=== PATIENT | female | born 1975 | race Caucasian/White ===

== ENCOUNTER 2017-03-04 15:48 | Emergency (ER) | payer MEDICARE, OTHER ==
--- NOTE | 2017-03-04 16:37 | RAD ---
RADIOGRAPH CHEST 1 VIEW: 03/04/17 HISTORY: 41-year-old female with dyspnea and cough. FINDINGS: There are no air space densities, pulmonary edema, pneumothorax, or cardiomegaly. The lateral costo phrenic angles are sharp. IMPRESSION: No acute cardiopulmonary findings. damaso [] POS: [facility]
[2017-03-04 16:50] LABS: #Basophils 0.1 thou/uL (0.0-0.2); #Eosinphils 0.2 thou/uL (0.0-0.7); #Lymphocytes 1.6 thou/uL (1.20-3.40); #Monocytes 0.6 thou/uL (0.11-0.59); %Basophils 0.6 % (0.0-1.0); %Eosinophils 2.2 % (0.0-10.0); %Lymphocytes 19.4 % (21.0-51.0); Mean Platelet Volume 9.1 fL (7.4-10.4); White Blood Cell (WBC) Count 8.4 thou/uL (4.8-10.8)
[2017-03-04 17:13] LABS: ALT (SGPT) 9 U/L (8-55); AST (SGOT) 7 U/L (5-34); Alkaline Phosphatase 106 U/L (40-150); Anion Gap 13 mmol/L (10-20); BUN (Urea Nitrogen) 7 mg/dL (7.0-18.7); Bilirubin, Total 0.4 mg/dL (0.2-1.2); CK (CPK) 105 U/L (29-168); Calc. Creatinine Clearance 0 mL/min (70-130); Calcium 9.4 mg/dL (7.8-10.44); Carbon Dioxide 27 mmol/L (22-29); Chloride 102 mmol/L (98-107); Estimated GFR-MDRD 76; Globulin 3.4 g/dL (2.4-3.5)
[2017-03-04 17:17] LABS: Troponin I 0.015 ng/mL (< 0.028)
[2017-03-04] MEDS ORDERED: Lorazepam 2 MG/ML VIAL ONE ×2 (18:41→20:03)
--- NOTE | 2017-03-04 22:56 | CT ---
CT ANGIOGRAM THORAX WITH IV CONTRAST AND 3D RECONSTRUCTIONS: 03/04/17 HISTORY: Shortness of breath. Chest pain. FINDINGS: No filling defects are seen within the pulmonary arteries to suggest a pulmonary embolus. The thorac ic aorta is normal in caliber and there is no evidence of an aortic dissection. There are reticulonodular densities seen within the upper lobes bilaterally, greater on the right crowley ggesting infectious or inflammatory process. There is a pleural based nodular density present at the posterior aspect left lower lobe measuring 8 mm. No pleural effusion is identified. There is mild prominence of soft tissue density in the hilar regions bilaterally which may be related to reactive lymphadenopathy. Calcified granuloma is seen at the right lung base. Post cholecystectomy changes are partially imaged in the upper abdomen. IMPRESSION: 1. Reticulonodular densities in the upper lobes bilaterally, greater on the right which may be related to infectious or inflammatory process. 2. 8 mm pleural based nodular density left lower lobe. Followup evaluation in six months is rec ommended. 3. No CT evidence of a pulmonary embolus. 4. Probable reactive lymphadenopathy in each hilar region. POS: [facility]
== END 2017-03-04 21:42 | disposition home or self-care (01) ==
LOC: ERS 15:48
DX: E11.65 Type 2 diabetes mellitus with hyperglycemia (principal); F41.9 Anxiety disorder, unspecified; I10 Essential (primary) hypertension; F32.9 Major depressive disorder, single episode, unspecified; F17.210 Nicotine dependence, cigarettes, uncomplicated; Z79.899 Other long term (current) drug therapy
CPT/HCPCS: 36415; 36416; 71010; 71275; 80053; 82550; 82553; 84484; 85025; 93005; 94640; 96361; 96374; 96376; J2060; J7620

== ENCOUNTER 2017-04-08 03:56 | Inpatient (IN) | payer MEDICARE, OTHER ==
[2017-04-08 04:36] LABS: #Eosinphils 0.2 thou/uL (0.0-0.7); #Monocytes 0.6 thou/uL (0.11-0.59); #Neutrophils 11.7 thou/uL (1.40-6.50); %Basophils 0.1 % (0.0-1.0); %Eosinophils 1.2 % (0.0-10.0); %Lymphocytes 19.4 % (21.0-51.0); Hematocrit 44.9 % (36.0-47.0); Mean Platelet Volume 9.3 fL (7.4-10.4); Red Blood Cell (RBC) Count 5.05 mill/uL (4.20-5.40); White Blood Cell (WBC) Count 15.5 thou/uL (4.8-10.8)
[2017-04-08 04:59] LABS: ALT (SGPT) 8 U/L (8-55); AST (SGOT) 23 U/L (5-34); Alkaline Phosphatase 85 U/L (40-150); Anion Gap 17 mmol/L (10-20); BUN (Urea Nitrogen) 11 mg/dL (7.0-18.7); Bilirubin, Total 0.5 mg/dL (0.2-1.2); Calc. Creatinine Clearance 0 mL/min (70-130); Calcium 8.8 mg/dL (7.8-10.44); Carbon Dioxide 22 mmol/L (22-29); Chloride 103 mmol/L (98-107); Estimated GFR-MDRD 58; Globulin 3.7 g/dL (2.4-3.5); Protein, Total 7.5 g/dL (6.0-8.3)
[2017-04-08 05:01] LABS: Troponin I Less than 0.010 ng/mL (< 0.028)
[2017-04-08] MEDS ORDERED: Atropine Sulfate 1 mg/10 ml Syringe ONE (05:07)
[2017-04-08] MEDS ORDERED: Fentanyl 100 MCG/2 ML VIAL ONE ×2 (05:28→06:42)
[2017-04-08 05:52] LABS: Bilirubin Negative (Negative); Blood, Urine Negative (Negative); Glucose, Urine (Dipstick) Negative (Negative); Ketone, Urine Trace mg/dL (Negative); Nitrite Negative (Negative); Protein, Urine (Dipstick) 30 mg/dL (Neg-Trace); Urobilinogen 0.2 mg/dL (0.2-1.0)
[2017-04-08 05:55] LABS: Bacteria/HPF None Seen HPF (None Seen); RBC/HPF 0-3 HPF (0-3)
[2017-04-08 05:56] LABS: Lactic Acid - Sepsis 3.6 mmol/L (0.5-2.2)
[2017-04-08] MEDS ORDERED: Norepinephrine 8 MG/0.9% NS 250 ML ONE (06:01)
[2017-04-08 06:26] LABS: Amphetamine Not Detected (NotDetected); Methadone Not Detected (NotDetected); Methamphetamine Not Detected (NotDetected)
[2017-04-08 06:46] LABS: Hyaline Casts/LPF 0-3 HYALINE CAST LPF (0-3 Hyaline); Renal Epithelial 0-3 HPF (0-3)
--- NOTE | 2017-04-08 07:55 | RAD ---
PORTABLE CHEST 1 VIEW: Date: 04/08/17 Time: 0618 hours HISTORY: Central line placement. COMPARISON: Exam from 0504 hours same date. FINDINGS/IMPRESSION: There has been interval placement of right subclavian central line with tip in the projection of the SVC. No pneumothorax is seen. POS: [facility]
--- NOTE | 2017-04-08 07:57 | RAD ---
PORTABLE CHEST 1 VIEW: Date: 04/08/17 Time: 0504 hours HISTORY: Syncope. FINDINGS: Comparison made with exam of 01/31/16. The heart size is normal. The lungs are well expanded without focal areas of consolidation, pneumoth orax, or pleural effusions. Evidence of old granulomatous disease again seen. IMPRESSION: No radiographic evidence of acute cardiopulmonary process. POS: [facility]
[2017-04-08 08:21] LABS: CK (CPK) 62 U/L (29-168); Lipase 18 U/L (8-78)
[2017-04-08 08:24] LABS: Troponin I Less than 0.010 ng/mL (< 0.028)
[2017-04-08 08:28] LABS: PTT 30.7 SEC (22.9-36.1); Prothrombin Time 14.2 SEC (12.0-14.7)
[2017-04-08] MEDS ORDERED: Ondansetron ODT 4 MG TAB SL PRN ×2 (08:34→09:01)
[2017-04-08] MEDS ORDERED: Ondansetron HCl/PF 4 MG/2 ML Vial IVP PRN ×2 (08:34→09:01)
[2017-04-08] MEDS ORDERED: Acetaminophen 325 MG TAB PO PRN ×2 (08:34→09:01)
[2017-04-08] MEDS ORDERED: Norepinephrine 8 MG/250 ML BAG IVPB PRN (08:35)
[2017-04-08] MEDS ORDERED: Sodium Chloride 0.9% 1,000 ML IV SCH ×3 (08:36→10:28)
[2017-04-08 08:47] VITALS: BMI 41.1
[2017-04-08] MEDS ORDERED: Docusate 100 MG CAP PO PRN (09:01)
[2017-04-08] MEDS ORDERED: Nicotine 14 MG PATCH TD SCH (09:01)
[2017-04-08] MEDS ORDERED: Dextrose 5% in Water 1,000 ML IV PRN (09:01)
[2017-04-08] MEDS ORDERED: HumaLOG 300 UNITS/3 ML VIAL SC PRN ×2 (09:01)
[2017-04-08] MEDS ORDERED: Dextrose 50% Abboject 50 ML SYRINGE SLOW IVP PRN (09:01)
[2017-04-08 09:30] LABS: Hemoglobin A1c 5.8 % (4.0-6.0)
[2017-04-08 09:48] LABS: Magnesium 1.9 mg/dL (1.6-2.6); Phosphorus 3.3 mg/dL (2.3-4.7)
--- NOTE | 2017-04-08 10:12 | HP-2 ---
RESIDENT PHYSICIAN: Ben Mccartney M.D. ATTENDING PHYSICIAN: Kisha Nelson M.D. PRIMARY CARE PHYSICIAN: Glenn Ramirez M.D. CODE STATUS: Full. HISTORIAN: Patient. CHIEF COMPLAINT: Lightheadedness at home. HISTORY OF PRESENT ILLNESS: A 42-year-old female with past medical history of type 2 diabetes fidel mckeon, hypertension, and schizoaffective disorder with prior suicide attempts, presenting after an epi sode of near syncope at home around 2:15 this morning. The patient states that she got up from her recliner to use the bathroom and became acutely lightheaded with her knees giving out in the bathroo m. She fell to the floor in the bathroom, falling against her back and side without any loss of con sciousness or head trauma. The patient then called a friend who took her to the ER via private vehi sanam. Upon arrival, the patient was found to be bradycardic in the low 50s. The patient was given a tropine x2 without improvement and blood pressures were running at 60-70/40. At that point, Cardiol oralia was consulted and the patient was given a right central line and started on a Levophed drip. Tr anscutaneous pacing not performed in the ER. Other medications received in the ER included a 2 lite r bolus of normal saline, 500 mcg of fentanyl x2 and 10 mg of Decadron was also ordered, although un clear if the patient received this. The patient with no known cardiac history. She does state that she has been on Levaquin for 4 days for a left ear infection. Denies any other symptoms, including chest pain, palpitations, fever or chills. Only current complaint is musculoskeletal pain in the l ow back and right shoulder after the fall. Denies wanting to hurt herself or any intentional overdo se on any of her medications. PAST MEDICAL HISTORY: Hypertension, schizoaffective disorder with primarily depressive symptoms, ty pe 2 diabetes. PAST SURGICAL HISTORY: She had an open cholecystectomy and back surgery x2. ALLERGIES: PENICILLIN G. MEDICATIONS: Medication list obtained from patient, but is not congruent with no medications listed in clinic EMR. We will further verify. 1. Klonopin 1 mg b.i.d. 2. Seroquel 100 mg at bedtime. 3. Lisinopril 20 mg daily. 4. Mirtazapine unknown dosage. 5. Tizanidine, unknown dosage. 6. Luvox unknown dosage, taken b.i.d. 7. Invega injections monthly. 8. Lantus 20 mg every night. 9. Metformin 500 mg b.i.d. FAMILY HISTORY: Significant for father with MA, coronary artery disease and stroke. Paternal grand mother with coronary artery disease. Paternal grandfather required pacemaker. Maternal grandfather had coronary artery disease and required a pacemaker. SOCIAL HISTORY: The patient smokes 1 pack per day since age 11. She drinks occasionally and admits to cocaine abuse, opiate abuse and marijuana abuse. Last drug use was 3 days ago when she smoked m arijuana laced with cocaine. The patient lives at home alone. She is single with no children. She is disabled. No recent ill contacts. REVIEW OF SYSTEMS: Ten point review of systems including general, eyes, ENT, respiratory, CV, GI, G U, skin, musculoskeletal, and neuro all negative except for those pertinent positives listed above i n the HPI. PHYSICAL EXAMINATION: VITAL SIGNS: Blood pressure 101/76, pulse 65, respiratory rate 11, temperature 97.7, pulse ox 97% o n room air, current weight is 136.08 kg. GENERAL: The patient was alert and oriented x3, in no acute distress. She is obese, appropriately interactive. EYES: PERRLA, EOMI. Conjunctivae within normal limits. ENT: TMs were both clear without bulging or erythema. No drainage or discharge noted. Oropharynx was significant for slightly erythematous posterior pharynx, otherwise within normal limits. NECK: Supple, no lymphadenopathy, no thyromegaly, no bruits. CARDIOVASCULAR: Regular rate and rhythm, no murmur, no gallops. Radial pulses 2+, pedal pulses 1+. RESPIRATORY: Normal effort, no retractions, clear to auscultation bilaterally. ABDOMEN: Soft, nontender to palpation. Positive bowel sounds x4, central obesity. EXTREMITIES: No clubbing, cyanosis or edema. MUSCULOSKELETAL: Mild tenderness to palpation over areas impacted by the fall, shoulder and back, b ut full range of motion, tone within normal limits. Muscle strength 5/5. NEUROLOGIC: No focal deficits. Sensation within normal limit. Deep tendon reflexes 2/4. Cranial nerves II-XII intact. GCS 15. PSYCHIATRIC: Appropriate mood and affect. LABORATORY DATA: CBC: White blood cell count was 15.5, platelets 183, hemoglobin 15.3, hematocrit 44.9. CMP: Sodium 138, potassium 3.9, chloride 103, bicarbonate 22, BUN 11, creatinine 1.03, GFR w as 58, glucose 297, calcium 8.8, total protein 7.5, albumin 3.8, total bilirubin 0.5, AST 23, ALT 8 and alkaline phosphatase 85, lactic acid was 3.6. UDS positive for opiates, cocaine and cannabinoid s. UA showed 30 protein, trace ketones, trace leukocyte esterase, 4-6 white blood cells, 7-10 squam ous cells, 4-6 transitional epithelial cells. EKG showed sinus bradycardia with PACs. Chest x-ray showed evidence of old granulomatous disease, b ut no radiographic evidence of acute cardiopulmonary process and normal heart size. ASSESSMENT AND PLAN: This is a 42-year-old female with: 1. Symptomatic bradycardia and hypotension. We will admit to CCU. Status post atropine x2 and now on Levophed drip with interval improvement of heart rate and blood pressure. Unknown etiology for vital sign disturbances. House Mover Helper, Dr. Meneses consulted from ER. Will possibly need central venous piecing and possible eventual placement of permanent pacemaker. We will defer to Cardiology for sick sinus syndrome evaluation. We will trend troponins. TSH, blood cultures, urine cultures, BNP, echo, mag and phosphatase all pending. No obvious precipitating medications that the patient i s on. Recent cocaine use complicating the picture. 2. Lactic acidosis. We will trend lactate secondary to poor perfusion from severe hypotension vers us possible sepsis syndrome. We do not have an obvious reason and for decrease in the patient's sys temic vascular resistance, so we will have to assume infection and start empiric antibiotics with va ncomycin and Levaquin. We will also obtain head and face CT given the patient's recent otitis media . 3. Leukocytosis with left shift, concern for infection as stated above. No clinical evidence of se psis other than hypotension, equals 1, which is low risk. Blood and urine cultures pending. UA was a contaminated specimen. 4. Acute kidney injury. GFR earlier this year was over 100. We will continue fluid resuscitation and recheck labs in the morning. The patient is status post 2 boluses of normal saline in the ER. 5. Type 2 diabetes mellitus. Continue long-acting insulin at home dosage, sliding scale insulin an d will check an A1c and get Accu-Cheks a.c. and at bedtime. 6. Schizoaffective disorder. Continue home medications as long as no cardiac contraindication. 7. Polysubstance abuse. Cessation counseling, nicotine patch. DISPOSITION/LENGTH OF HOSPITAL STAY: Will likely be discharged back to home after greater than 2 mi dnights. Symptomatic medications will be provided. History and physical exam as well as management discussed with Dr. Kisha Nelson.
[2017-04-08] MEDS ORDERED: Ketorolac Tromethamine 60 MG/2 ML VIAL IM SCH (10:30)
[2017-04-08] MEDS: Vancomycin HCl 1.5 GM in Sodium Chloride 0.9% 250 ML 300 ML IVPB SCH ×2 (10:46→21:11)
[2017-04-08] MEDS: Enoxaparin Sodium 40 MG/0.4 ML SYRINGE SC SCH (10:47)
[2017-04-08] MEDS ORDERED: Lisinopril 20 MG TAB PO SCH (12:45)
--- NOTE | 2017-04-08 13:36 | CT ---
HEAD CT WITHOUT CONTRAST: Date: 04-08-17 Comparison: None. History: Dizziness, fall, recent ear infection. Technique: Serial axial CT imaging obtained at 5 mm intervals from vertex through skull base without contrast. FINDINGS: There is partial opacification of the mastoid air cells inferiorly on the left, incompletely imaged on this exam. This could reflect mastoiditis in the proper clinical setting. This could be better as sessed via CT of the temporal bones as clinically indicated. There is no displaced calvarial fracture. No intracranial hemorrhage, midline shift, mass effect or ventricular enlargement. IMPRESSION: Partial opacification of the mastoid air cells on the left, incompletely imaged. Mastoiditis is a po ssibility in the proper clinical setting. Dedicated imaging via CT examination of the temporal bones may be beneficial. POS: [facility]
[2017-04-08] MEDS ORDERED: ISOVUE-370 76%-LOCM 1 ML ONE (14:19)
--- NOTE | 2017-04-08 14:42 | CT ---
CT OF THE FACE WITH CONTRAST: Date: 04-08-17 Comparison: None. History: Ear infection, dizziness, recent fall. Technique: Serial axial CT imaging at 2.5 mm intervals obtained through the facial bones with IV con trast. Coronal reformatted imaging obtained. FINDINGS: Mastoid air cells are only partially evaluated/imaged on this examination. The frontal sinuses, maxillary sinuses, sphenoid sinuses, and ethmoid air cells are grossly unremark able. The imaged portions of the mastoid air cells are unremarkable. The portions of opacified masto id air cells on the left seen on recent head CT are not included in the field of view on this exam. The ear and external auditory canal is only partially imaged bilaterally. No facial abscess is noted. There is no acute osseous abnormality appreciated. IMPRESSION: Grossly unremarkable contrast enhanced CT examination of the face. Of note, the ear, tympanic cavity , and mastoid air cells are not fully assessed on this examination. Recent CT exam did show partial opacification of the left mastoid air cells. The study of choice for further assessment of these fin dings would be CT examination of the temporal bones if clinically warranted. POS: [facility]
[2017-04-08] MEDS ORDERED: hydrALAZINE 20 MG/ML VIAL SLOW IVP PRN (15:53)
--- NOTE | 2017-04-08 16:13 | CON ---
DATE OF CONSULTATION: 04/08/2017 Ms. Benoit is a 42-year-old female. She does not recall coming to the hospital. She gave a history to the physicians that admitted here that she became lightheaded when getting out of a chair. She did not volunteer this history from me and said she cannot remember how she got here or why she is here. She has been hydrated. She apparently was on antibiotics prior to admission. PAST MEDICAL HISTORY: Remarkable for, 1. Hypertension. 2. Schizoaffective disorder. 3. History of diabetes. 4. History of cholecystectomy. 5. History of admission in 01/2016 for a self-inflicted overdose/suicide attempt. She took 39 pills of losartan that admission. It was noted then she had cocaine on a drug screen. She has cocaine on a drug screen this admission. She had a lumbar laminectomy with subsequent CSF fluid leak that required operative intervention in 01/2005. FAMILY HISTORY: Negative for lung disease at an early age. PHYSICAL EXAMINATION: VITAL SIGNS: Blood pressure 164/76, heart rate 61, respiratory rate in the 20s. HEENT: Pupils are equal. Sclerae are anicteric. NECK: Supple. LUNGS: Clear. HEART: Regular rhythm. S1 and S2 are normal. ABDOMEN: Soft. EXTREMITIES: Without asymmetry. LABORATORY DATA: White count 15.5, hemoglobin 15.3, platelets 183. Electrolytes were normal on admission. Creatinine was 1, glucose 297. Lactate level was 3.6, globulin was 3.7. BNP was 46, lipase was 18. Drug screen was positive for opiates, cocaine and cannabinoids. IMPRESSION: 1. Hypotension on admission of unclear etiology. Cultures are negative so far. 2. Street drug use. 3. History of suicide attempts, last year. PLAN: Hydration, serial exams, simplify antibiotics as cultures allow. Critical care time 30 min. MTDD
[2017-04-08] MEDS: metFORMIN 500 MG TAB PO SCH (16:15)
[2017-04-08] MEDS ORDERED: Hydrochlorothiazide 25 MG TAB PO SCH ×2 (16:45→21:00)
[2017-04-08] MEDS ORDERED: cloNIDine 0.1 MG TAB PO PRN (17:13)
[2017-04-08] MEDS: Nicotine 21 MG PATCH TD SCH (17:24)
[2017-04-08] MEDS ORDERED: Ketorolac Tromethamine 30 MG/ML VIAL IVP SCH (20:00)
[2017-04-08] MEDS: Insulin Detemir 100 UNITS/ML 20 UNITS in Pre-Filled Syringe 1 EACH SC SCH (20:27)
[2017-04-09 04:54] LABS: #Eosinphils 0.2 thou/uL (0.0-0.7); #Lymphocytes 2.3 thou/uL (1.20-3.40); #Monocytes 0.5 thou/uL (0.11-0.59); #Neutrophils 3.6 thou/uL (1.40-6.50); %Basophils 0.3 % (0.0-1.0); %Eosinophils 2.5 % (0.0-10.0); %Monocytes 7.2 % (0.0-10.0); Hematocrit 39.5 % (36.0-47.0); Mean Platelet Volume 9.4 fL (7.4-10.4); Red Blood Cell (RBC) Count 4.45 mill/uL (4.20-5.40); White Blood Cell (WBC) Count 6.5 thou/uL (4.8-10.8)
[2017-04-09 05:10] LABS: Anion Gap 10 mmol/L (10-20); BUN (Urea Nitrogen) 5 mg/dL (7.0-18.7); Calc. Creatinine Clearance 247 mL/min (70-130); Calcium 8.6 mg/dL (7.8-10.44); Carbon Dioxide 28 mmol/L (22-29); Chloride 103 mmol/L (98-107); Estimated GFR-MDRD Greater than 90
[2017-04-09] MEDS ORDERED: Potassium Chloride 40 MEQ in Premix Bag 1 BAG IVPB SCH (05:45)
[2017-04-09] MEDS ORDERED: CCU Electrolyte Replacement 1 EACH FS ONE (06:33)
[2017-04-09] MEDS ORDERED: Magnesium Oxide 400 MG TAB PO PRN ×2 (06:43)
[2017-04-09] MEDS ORDERED: Potassium Phosphate 12 MMOL in Sodium Chloride 0.9% 250 ML 250 ML IV PRN (06:43)
[2017-04-09] MEDS ORDERED: Potassium Phosphate 9 MMOL in Sodium Chloride 0.9% 100 ML IVPB PRN (06:43)
[2017-04-09] MEDS ORDERED: Potassium Chloride 40 MEQ in Sodium Chloride 0.9% 250 ML 250 ML IVPB PRN (06:43)
[2017-04-09] MEDS ORDERED: CCU ELECTROLYTE REPLACEMENT PROTOCOL FS PRN (06:43)
[2017-04-09] MEDS ORDERED: Potassium Chloride 20 MEQ TAB PO PRN (06:43)
[2017-04-09] MEDS ORDERED: Magnesium 2 GM/NS 0.9% 100 ML 2 GM in Premix Bag 1 BAG IVPB PRN (06:43)
[2017-04-09] MEDS ORDERED: Potassium Phosphate 15 MMOL in Sodium Chloride 0.9% 250 ML 250 ML IV PRN (06:43)
[2017-04-09] MEDS ORDERED: Potassium Chloride 40 MEQ in Premix Bag 1 BAG IVPB PRN (06:43)
--- NOTE | 2017-04-09 07:14 | PDOC.FM ---
- Subjective Subjective: Pt with elevated BP's overnight, w complaints of back pain this AM. States toradol helped a little bit but asking for "something stronger" this AM. Still borderline bradycardic this AM. Pt did not require pressors overnight. Never seen by cardiology yesterday. Otherwise VSS and pt afebrile. No other complaints. - Objective MAR Reviewed: Yes Vital Signs & Weight: Vital Signs (12 hours) Temp Pulse Resp BP Pulse Ox 04/09/17 06:00 55 L 16 146/62 H 93 L 04/09/17 05:00 53 L 15 165/76 H 93 L 04/09/17 04:00 98.1 F 56 L 13 141/79 H 92 L 04/09/17 03:00 59 L 13 130/55 L 93 L 04/09/17 02:00 59 L 14 163/71 H 94 L 04/09/17 00:00 98.0 F 04/08/17 20:00 97.7 F 64 16 94 L Weight Weight 137.3 kg Most Recent Monitor Data Heart Rate from ECG 62 NIBP 171/77 NIBP BP-Mean 97 Respiration from ECG 15 SpO2 95 I&O: 04/08/17 04/09/17 04/10/17 06:59 06:59 06:59 Intake Total 1690 Output Total 5500 Balance -3810 Result Diagrams: 04/09/17 03:25 04/09/17 03:25 <Bobo Anders - Last Filed: 04/09/17 07:12> - Objective Vital Signs & Weight: Vital Signs (12 hours) Temp Pulse Resp BP Pulse Ox 04/09/17 19:15 97.7 F 55 L 18 97 04/09/17 18:15 97.6 F 72 20 169/105 H 99 04/09/17 16:00 98.5 F Weight Weight 137.3 kg Most Recent Monitor Data Heart Rate from ECG 54 NIBP 159/73 NIBP BP-Mean 92 Respiration from ECG 17 SpO2 95 I&O: 04/08/17 04/09/17 04/10/17 06:59 06:59 06:59 Intake Total 1690 1745 Output Total 5500 3000 Balance -3810 -1255 Result Diagrams: 04/09/17 03:25 04/09/17 03:25 <Kisha Nelson - Last Filed: 04/09/17 22:44> Phys Exam - Physical Examination Constitutional: NAD HEENT: PERRLA Neck: no nodes Respiratory: clear to auscultation bilateral Cardiovascular: RRR Gastrointestinal: soft, non-tender Musculoskeletal: pulses present Neurological: non-focal, moves all 4 limbs Psychiatric: A&O x 3 Skin: cap refill <2 seconds <Bobo Anders - Last Filed: 04/09/17 07:12> Dx/Plan (1) Bradycardia Code(s): R00.1 - BRADYCARDIA, UNSPECIFIED Status: Acute Plan: Pt w/ initial complaint of near syncope and lightheadedness requiring atropine x2 and being placed on levophed in the ER 2/2 bradycardia Weaned off levophed upon getting to the ICU, however still with borderline bradycardia Denies any continued lightheadedness and states she feels fine besides back pain from a fall Cardiology was consulted from ER, however pt was not seen yesterday ECHO taken w/ read pending this AM Will re-consult on-call cardio this AM for pt to be evaluated Initial thoughts that episode possible 2/2 OD w/ opiates as patient was UDS positive for opiates, cocaine, and TCH Will await cardiology recs as pt has stable pressures and pulse in low 60's at this time prior to transition to Tele likely later today or tomorrow (2) HTN (hypertension) Code(s): I10 - ESSENTIAL (PRIMARY) HYPERTENSION Status: Chronic Plan: Pt w/ elevated BP after weaning off levophed for hypotension yesterday Placed back on home lisinopril, but still w/ pressures as high as 200's systolic Added HCTZ and PRN clonidine yesterday Will increase lisinopril and HCTZ dose for better control today Will stay away from beta blockers in the setting of cocaine abuse (3) Polysubstance abuse Code(s): F19.10 - OTHER PSYCHOACTIVE SUBSTANCE ABUSE, UNCOMPLICATED Status: Chronic Plan: UDS positive for cocaine, opiates, and THC Will not use beta blockers 2/2 cocaine use Nicoderm for tobacco use (4) Diabetes mellitus Code(s): E11.9 - TYPE 2 DIABETES MELLITUS WITHOUT COMPLICATIONS Status: Acute Plan: BG stable on CC diet Cont. w/ metformin and mild SSI (5) Schizoaffective disorder Code(s): F25.9 - SCHIZOAFFECTIVE DISORDER, UNSPECIFIED Status: Acute Plan: Cont. w/ outpatient psych meds stable (6) Back pain Code(s): M54.9 - DORSALGIA, UNSPECIFIED Status: Acute Plan: Will stay away from opiates 2/2 borderline bradycardic rates and opiate abuse Will add tramadol as pain likely msk in nature from fall no head trauma and no concern for fracture at this time <Bobo Anders - Last Filed: 04/09/17 07:12> Attending Addendum - Attending Addendum I personally evaluated the patient and discussed the management with Dr. Anders I agree with the History, Examination, Assessment and Plan documented above with any addition or exceptions noted below. 42 yo female admitted for hypotension with bradycardia HD#1 Hypotension: Resolved. Titrate BP meds. No evidence of infection. Possible drug induced. Bradycardia: Resolved. HR stable. Cards consulted. See dictation. Possible drug induced. Consider home event monitor. Polysubstance abuse: Support. Hx of SI: Would consider [facility] evaluation prior to d/c. Transfer to floor. Improve BP control. Evaluate mental state. Possible d/c tomorrow. ABrayMD <Kisha Nelson - Last Filed: 04/09/17 22:44>
[2017-04-09] MEDS: Lisinopril 10 MG TAB PO SCH (07:46)
[2017-04-09] MEDS: metFORMIN 500 MG TAB PO SCH ×2 (07:46→16:24)
[2017-04-09] MEDS: Hydrochlorothiazide 25 MG TAB PO SCH ×2 (07:46→20:59)
[2017-04-09] MEDS: Enoxaparin Sodium 40 MG/0.4 ML SYRINGE SC SCH (07:47)
[2017-04-09] MEDS ORDERED: Lisinopril 20 MG TAB PO SCH (09:00)
--- NOTE | 2017-04-09 10:21 | CON ---
DATE OF CONSULTATION: 04/09/2017 REASON FOR CONSULTATION: Bradycardia. HISTORY OF PRESENT ILLNESS: Ms. Benoit is a 42-year-old woman with past medical history as descri bed above who recently had a near syncopal episode. She states she never lost consciousness. She st ood up from a standing position. She was lightheaded, dizzy, and fell to the floor, but states she n ever lost consciousness. No chest pain or pressure noted. No other associated ameliorating or exace rbating factors present. She has no previous cardiac history. She has an extensive psychiatric hist ory. She also was positive for cocaine. She admits to using cocaine in the past. PAST MEDICAL HISTORY: Diabetes mellitus, hypertension, depression, previous suicide attempt. PAST SURGICAL HISTORY: Cholecystectomy, back surgery. ALLERGIES: To PENICILLIN. HOME MEDICATIONS: Include Seroquel, Klonopin, lisinopril, Tizanidine, Luvox, Invega, Lantus, metform in. FAMILY HISTORY: Positive for CAD. SOCIAL HISTORY: Positive for tobacco, positive for alcohol, positive for cocaine use. REVIEW OF SYSTEMS: Ten point review of systems reviewed and as above, otherwise negative. PHYSICAL EXAMINATION: GENERAL: Patient is a pleasant female who is in no acute distress. She does appear all in her state d age. VITAL SIGNS: Blood pressure 185/97, pulse 55, temperature 97.7. NEUROLOGIC: The patient is alert and oriented times 3 with no focal neurologic deficits. HEENT: Sclerae without icterus. Mouth has moist mucous membranes with normal pallor. NECK: No JVD. Carotid upstroke brisk. No bruits bilaterally. LUNGS: Clear to auscultation with unlabored respirations. BACK: No scoliosis or kyphosis. CARDIAC: Regular rate and rhythm with normal S1 and S2. No S3 or S4 noted. No significant rubs, murmurs, thrills, or gallops noted throughout the precordium. PMI is not displa wilian. There is no parasternal heave. ABDOMEN: Soft, nontender, nondistended. No peritoneal signs present. No hepatosplenomegaly. No abnormal striae. EXTREMITIES: A 2+ femoral and 2+ dorsalis pedis pulses. No cyanosis, clubbing, or edema. SKIN: No gross abnormalities. PERTINENT LABORATORY DATA: Hemoglobin 13.2, potassium 2.9, GFR greater than 90. EKG showed sinus br adycardia with no ST wave changes suggesting ischemia. IMPRESSION: Sinus bradycardia. RECOMMENDATIONS: Lowest heart rate recorder was 53 beats per minute. She was treated with atropine and Levophed in the ER for the above. No true syncope noted. No evidence of bradycardia noted in the 40s. She may have been more orthostatic hypotensive. There is no indication for pacemaker at this point. May recommend an echo with Doppler in addition to a 3-week event recorder. We would also recommend increasing her potassium to greater than 3.5. We will leave the discretion to the primary team. I mirna quickld be okay from my standpoint to discharge ICU and transferred to telemetry monitoring overnight an d discharge in a.m.
[2017-04-09] MEDS: Nicotine 21 MG PATCH TD SCH (17:04)
--- NOTE | 2017-04-09 17:58 | PRG ---
DATE OF SERVICE: 04/09/2017 SUBJECTIVE: Her blood pressure has been stable and she has actually been mildly hypertensive. OBJECTIVE: Heart rates in the 50s, respiratory rates in the teens. Oximetries in the mid 90s. She wants to go downstairs and smoke. There has been no change overall, otherwise. LABORATORY DATA: White count is 6.5, hemoglobin 13.2. Sodium 138, potassium 2.9, chloride 103, bicarbonate 20, BUN 5, creatinine 0.63. IMPRESSION: Status post hypotension with negative cultures. As mentioned in my consultation, she do es have a history of intentionally overdosing on hypertension medications. I would wonder if her hyp otension was self-inflicted for attention-seeking reasons. No clear pathological cause has been iden tified so far.
[2017-04-09] MEDS ORDERED: Nicotine 21 MG PATCH TD SCH (18:00)
[2017-04-09] MEDS: Vancomycin HCl 1.5 GM in Sodium Chloride 0.9% 250 ML 300 ML IVPB SCH (18:43)
[2017-04-09] MEDS: Insulin Detemir 100 UNITS/ML 20 UNITS in Pre-Filled Syringe 1 EACH SC SCH (20:59)
[2017-04-09] MEDS: traMADol HCl 50 MG TAB PO PRN (21:00)
[2017-04-10 04:59] LABS: #Eosinphils 0.2 thou/uL (0.0-0.7); #Lymphocytes 2.3 thou/uL (1.20-3.40); #Monocytes 0.5 thou/uL (0.11-0.59); #Neutrophils 4.3 thou/uL (1.40-6.50); %Basophils 0.1 % (0.0-1.0); %Eosinophils 2.5 % (0.0-10.0); %Lymphocytes 31.7 % (21.0-51.0); %Monocytes 7.1 % (0.0-10.0); Hematocrit 42.4 % (36.0-47.0); Mean Platelet Volume 9.3 fL (7.4-10.4); Red Blood Cell (RBC) Count 4.78 mill/uL (4.20-5.40); White Blood Cell (WBC) Count 7.3 thou/uL (4.8-10.8)
[2017-04-10 05:23] LABS: Anion Gap 12 mmol/L (10-20); BUN (Urea Nitrogen) 9 mg/dL (7.0-18.7); Calc. Creatinine Clearance 217 mL/min (70-130); Calcium 9.3 mg/dL (7.8-10.44); Carbon Dioxide 26 mmol/L (22-29); Chloride 100 mmol/L (98-107); Estimated GFR-MDRD 88
[2017-04-10] MEDS: traMADol HCl 50 MG TAB PO PRN (07:39)
[2017-04-10] MEDS ORDERED: Potassium Chloride 20 MEQ TAB PO SCH (08:00)
[2017-04-10] MEDS: metFORMIN 500 MG TAB PO SCH (08:33)
[2017-04-10] MEDS: Lisinopril 10 MG TAB PO SCH (08:34)
[2017-04-10] MEDS: Hydrochlorothiazide 25 MG TAB PO SCH (08:34)
[2017-04-10] MEDS: Enoxaparin Sodium 40 MG/0.4 ML SYRINGE SC SCH (08:34)
--- NOTE | 2017-04-10 08:52 | PDOC.FM ---
- Subjective Subjective: FELISA overnight, VSS, seen by cardiology w/ plans to follow-up outpatient for event monitor. No new complaints this AM besides some mild back pain from fall. Has been ambulating w/o issue. - Objective MAR Reviewed: Yes Vital Signs & Weight: Vital Signs (12 hours) Temp Pulse Resp BP Pulse Ox 04/10/17 07:35 97.7 F 60 18 128/76 93 L 04/10/17 04:00 98.7 F 54 L 18 132/66 93 L Weight Weight 137.892 kg Most Recent Monitor Data Heart Rate from ECG 54 NIBP 159/73 NIBP BP-Mean 92 Respiration from ECG 17 SpO2 95 I&O: 04/09/17 04/10/17 04/11/17 06:59 06:59 06:59 Intake Total 1690 2495 Output Total 5500 3000 Balance -3810 -505 Result Diagrams: 04/10/17 04:30 04/10/17 04:30 Phys Exam - Physical Examination Constitutional: NAD HEENT: PERRLA, moist MMs Neck: no nodes Respiratory: no wheezing, clear to auscultation bilateral Cardiovascular: RRR, no significant murmur Gastrointestinal: soft, non-tender Musculoskeletal: no edema Neurological: moves all 4 limbs Psychiatric: A&O x 3 Skin: cap refill <2 seconds Dx/Plan (1) Bradycardia Code(s): R00.1 - BRADYCARDIA, UNSPECIFIED Status: Acute Plan: Pt with continued borderline bradycardic pulses low 60's high 50's however this appears to be her baseline from prior admissions Spoke w/ cardiology yesterday who evaluated patient w/ plans for discharge home today and event recorder in the outpatient setting if vitals remained stable Will plan for discharge home today w/ outpatient cards follow-up Associated hypotension likely 2/2 opiate use which was found on UDS which patient denies (2) HTN (hypertension) Code(s): I10 - ESSENTIAL (PRIMARY) HYPERTENSION Status: Chronic Plan: Stable BP's on new BP regimen Will plan to d/c home on new regimen today (3) Polysubstance abuse Code(s): F19.10 - OTHER PSYCHOACTIVE SUBSTANCE ABUSE, UNCOMPLICATED Status: Chronic Plan: UDS positive for cocaine, opiates, and THC Will not use beta blockers 2/2 cocaine use Nicoderm for tobacco use (4) Diabetes mellitus Code(s): E11.9 - TYPE 2 DIABETES MELLITUS WITHOUT COMPLICATIONS Status: Acute Plan: BG stable on CC diet Cont. w/ metformin and mild SSI (5) Schizoaffective disorder Code(s): F25.9 - SCHIZOAFFECTIVE DISORDER, UNSPECIFIED Status: Acute Plan: Cont. w/ outpatient psych meds stable (6) Back pain Code(s): M54.9 - DORSALGIA, UNSPECIFIED Status: Acute Plan: Cont. w/ PRN ultram and tylenol Will not prescribe opiates 2/2 abuse
[2017-04-10 13:07] VITALS: BP 134/83; TEMP 97.6
--- NOTE | 2017-04-10 13:40 | ADD-PRG ---
DATE OF SERVICE: 04/10/2017 This is an addendum to the note of Dr. Bobo Anders. Ms. Benoit was admitted with an episode of orthostatic hypotension. She was also noted to have a slight bradycardia, which was essentially asymptomatic. She was evaluated by Cardiology who did not feel she had a syncopal episode and recommended an event recorder. She will be discharged and will s Cardiology for an event recorder to ensure she has no significant symptomatic bradycardia.
--- NOTE | 2017-04-10 14:06 | PRG ---
DATE OF SERVICE: 04/10/2017 SUBJECTIVE: There are no significant changes noted overnight. OBJECTIVE: VITAL SIGNS: Blood pressure 129/76, pulse 67, temperature 97.7. LUNGS: Clear to auscultation. CARDIAC: Regular rate and rhythm. ABDOMEN: Soft, nontender, nondistended. EXTREMITIES: No edema. IMPRESSION: 1. Presyncope. 2. Bradycardia. RECOMMENDATIONS: There has been some concern about compliance with Ms. Benoit. At this point, I would recommend outpatient follow up in a week. If she does keep appointment, we would therefore rec ommend a 3-week event recorder to assess for significant dysrhythmias although unlikely to have preci pitated this most recent event. I counseled her on cessation of all tobacco products in addition to drug use.
--- NOTE | 2017-04-11 01:58 | DIS-2 ---
ADMISSION DATE: 04/08/2017 DISCHARGE DATE: 04/10/2017 ADMITTING ATTENDING: Dr. Omar Beard. DISCHARGE ATTENDING: Dr. Delmar Guaman. RESIDENT: Dr. Bobo Anders. CONSULTATIONS: 1. Cardiology, Dr. Stanton Kim. 2. Critical care Pulmonology, Dr. Bradley. PRIMARY DIAGNOSES: 1. Presyncope. 2. Bradycardia. 3. Polysubstance abuse. SECONDARY DIAGNOSES: 1. Hypertension. 2. Schizoaffective disorder. 3. Type 2 diabetes mellitus. DISCHARGE MEDICATIONS: 1. HCTZ 25 mg p.o. b.i.d. 2. Tramadol 100 mg p.o. q.6 hours as needed for back pain. 3. Trazodone 100 mg p.o. at bedtime. 4. Klonopin 1 mg p.o. b.i.d. 5. Seroquel 100 mg p.o. at bedtime. 6. Losartan 50 mg p.o. q. day. 7. Gabapentin 300 mg p.o. t.i.d. 8. Fluvoxamine maleate 100 mg p.o. q. day. DISCONTINUED MEDICATIONS: None. HISTORY OF PRESENT ILLNESS: Patient is a 42-year-old female with past medical history of schizoaffective disorder who presented to the ER for evaluation of near syncopal episode. Patient apparently standing up from a seated position, felt lightheaded with knees buckling. Patient fell backwards and hit her back, which at time of admission was her main complaint. Patient was found to be bradycardic in the 50s, was given 2 rounds of atropine on route and also found to be hypotensive in the 60s/40s. Patient was started on Levophed drip at this time and Cardiology was consulted from the ER. Patient was admitted to ICU secondary to be on a Levophed drip. However, patient with improved pressures of Levophed drips quickly titrated off at that time. Patient had blood cultures and was started on empiric antibiotic therapy with vancomycin, Levaquin upon admission. However, blood cultures and urine cultures growing out negative. Patient's white count down trended, status post likely clearance of the opioids, marijuana, and cocaine that was found in her system at time of admission. Leukocytosis likely secondary to stress response from drug abuse. Patient remained mildly bradycardic in the high 50s to low 60s; however, upon chart review, this appears to be her baseline. There is also some concern about compliance with her blood pressure medications as this was somewhat of an issue during her hospitalization. However, upon initiation of HCTZ 25 mg p.o. b.i.d. along with her home losartan, patient's blood pressures remained stable. Dr. Kim of Cardiology was consulted for evaluation who agrees with the above assessment and plans patient to have followup appointment in the office in approximately 1 week where the event monitor will be discussed. It was felt that patient's episode likely secondary to her acute drug abuse causing her transient hypotension. Patient's pain controlled with p.o. tramadol during this time, the patient ambulating with PT, OT throughout her hospitalization. Patient remained afebrile as well as her hospitalization and all cultures growing negative. DISPOSITION: Stable. DISCHARGE INSTRUCTIONS: 1. Location: Home. 2. Followup: Followup with primary care provider in 7 to 10 days. 3. Follow with Dr. Stanton Kim in 7 days. 4. Activity: Cardiopulmonary limits. MTDD
== END 2017-04-10 14:45 | disposition home or self-care (01) | DRG 918 ==
LOC: ERS 03:56 → CCU 06:46 → 2NO 04-09 18:26
PROVIDERS: ADMIT Emergency Medicine; ATTEND Emergency Medicine
PROC: 02HV33Z Insertion of Infusion Device into Superior Vena Cava, Percutaneous Approach (ICD-10-PCS; principal; 2017-04-08)
DX: T40.601A Poisoning by unspecified narcotics, accidental (unintentional), initial encounter (principal); N17.9 Acute kidney failure, unspecified; E87.2 Acidosis; I95.2 Hypotension due to drugs; Z68.41 Body mass index [BMI] 40.0-44.9, adult; R00.1 Bradycardia, unspecified; F14.10 Cocaine abuse, uncomplicated; F12.10 Cannabis abuse, uncomplicated; F11.10 Opioid abuse, uncomplicated; F17.210 Nicotine dependence, cigarettes, uncomplicated; E66.9 Obesity, unspecified; F25.1 Schizoaffective disorder, depressive type; I10 Essential (primary) hypertension; E11.9 Type 2 diabetes mellitus without complications; Z79.4 Long term (current) use of insulin; Z91.14 Patient's other noncompliance with medication regimen; M54.9 Dorsalgia, unspecified
CPT/HCPCS: 36415; 36416; 36556; 51701; 70450; 70487; 71010; 80048; 80053; 80202; 80306; 81003; 81015; 82553; 83036; 83605; 83690; 83735; 83880; 84100; 84443; 84484; 85025; 85610; 85730; 87040; 87086; 90471; 90732; 93005; 93306; 96361; 96365; 96375; 96376; 99406; A4353; G0009; J0360; J0461; J1650; J1815; J1885; J1956; J3010; J3370; J3480; J7050

== ENCOUNTER 2017-04-11 23:49 | Observation (INO) | payer MEDICARE, OTHER ==
[2017-04-12 01:01] LABS: #Basophils 0.1 thou/uL (0.0-0.2); #Eosinphils 0.1 thou/uL (0.0-0.7); #Lymphocytes 1.6 thou/uL (1.20-3.40); #Monocytes 0.5 thou/uL (0.11-0.59); #Neutrophils 5.2 thou/uL (1.40-6.50); %Basophils 0.8 % (0.0-1.0); %Eosinophils 1.7 % (0.0-10.0); %Monocytes 6.7 % (0.0-10.0); Hematocrit 41.7 % (36.0-47.0); Mean Platelet Volume 9.4 fL (7.4-10.4); Red Blood Cell (RBC) Count 4.71 mill/uL (4.20-5.40); White Blood Cell (WBC) Count 7.4 thou/uL (4.8-10.8)
[2017-04-12 01:17] LABS: Troponin I Less than 0.010 ng/mL (< 0.028)
[2017-04-12 01:40] LABS: ALT (SGPT) 9 U/L (8-55); AST (SGOT) 12 U/L (5-34); Alkaline Phosphatase 77 U/L (40-150); Anion Gap 16 mmol/L (10-20); BUN (Urea Nitrogen) 19 mg/dL (7.0-18.7); Bilirubin, Total 0.3 mg/dL (0.2-1.2); CK (CPK) 31 U/L (29-168); Calc. Creatinine Clearance 0 mL/min (70-130); Calcium 8.8 mg/dL (7.8-10.44); Carbon Dioxide 23 mmol/L (22-29); Chloride 102 mmol/L (98-107); Estimated GFR-MDRD 32; Protein, Total 6.6 g/dL (6.0-8.3)
[2017-04-12] MEDS ORDERED: Acetaminophen 325 MG TAB PO PRN (03:54)
[2017-04-12 04:44] LABS: Troponin I Less than 0.010 ng/mL (< 0.028)
[2017-04-12 04:54] VITALS: BMI 40.5
[2017-04-12] MEDS: Sodium Chloride 0.9% 1,000 ML IV SCH ×3 (05:26→18:42)
[2017-04-12 05:38] LABS: Amphetamine Not Detected (NotDetected); Methadone Not Detected (NotDetected); Methamphetamine Not Detected (NotDetected)
[2017-04-12] MEDS ORDERED: Potassium Chloride 20 MEQ TAB PO SCH (06:00)
[2017-04-12] MEDS ORDERED: HumaLOG 300 UNITS/3 ML VIAL SC PRN (07:07)
[2017-04-12] MEDS ORDERED: Dextrose 50% Abboject 50 ML SYRINGE SLOW IVP PRN (07:07)
[2017-04-12] MEDS ORDERED: Dextrose 5% in Water 1,000 ML IV PRN (07:07)
[2017-04-12 07:36] LABS: Troponin I Less than 0.010 ng/mL (< 0.028)
--- NOTE | 2017-04-12 08:32 | HP-2 ---
DATE OF ADMISSION: 04/12/2017 CODE STATUS: FULL. PRIMARY CARE PHYSICIAN: Dr. Glenn Ramirez. ATTENDING: Dr. Aragon. RESIDENT: Dr. Key. CHIEF COMPLAINT: Lightheadedness. HISTORY OF PRESENT ILLNESS: This is a 42-year-old female with past medical history of hypertension, diabetes, schizoaffective disorder, who reports that she came to the emergency room, because she felt like her head was swimming and she started to feel weak to the knees like her knees were going to bu ckle if she did not sit down fast enough. She also felt like her heart was going to jump out of her chest. She has these episodes several times a day. This has been going on for months. She was admi tted recently and discharged 2 days ago for this same issue. Reports that she felt better towards th e end of her admission after getting discharged, but then her symptoms have returned. She feels like she is going to pass out during these episodes and has fallen several times, but has never lost cons ciousness. The episodes sometimes happen while she is sitting down, sometimes while she is standing up, never while she is lying down. She also reports some chest pain that she describes as a squeezin g pain in the middle of her chest with no radiation that happened during these same episodes of light headedness where she feels like she is going to pass out. In the ER, she was given 1 liter normal sa line, aspirin 324 mg. PAST MEDICAL HISTORY: 1. Hypertension. 2. Diabetes, type 2. 3. Schizoaffective disorder. PAST SURGICAL HISTORY: Cholecystectomy and back surgery x2. ALLERGIES: PENICILLIN. MEDICATIONS: 1. Hydrochlorothiazide 25 mg b.i.d. 2. Tramadol 100 mg q.6 hours p.r.n. 3. Trazodone 100 mg at bedtime. 4. Klonopin 1 mg b.i.d. 5. Seroquel 100 mg at bedtime. 6. Losartan 50 mg daily. 7. Gabapentin 300 mg t.i.d. 8. Fluvoxamine maleate 100 mg daily. FAMILY HISTORY: Dad, coronary artery disease; mom, diabetes and hypertension. SOCIAL HISTORY: Smokes 1-pack per day for 31 years. Drinks alcohol occasionally. Reported marijuan a abuse about twice per week, most recently last weekend. Denied any other drug use, but recently te sted positive for cocaine on her last admission. Lives alone. REVIEW OF SYSTEMS: General: Negative for fever, chills, weight changes, fatigue. Eyes: Negative f or eye pain. ENT: Negative for rhinorrhea or sore throat. Respiratory: Negative for cough or shor tness of breath. Cardiovascular: Positive for chest pain or palpitations. Negative for edema. GI: Negative for nausea, vomiting, diarrhea, abdominal pain. Genitourinary: Negative for dysuria or p olyuria. Skin: Negative for rashes or lesions. Musculoskeletal: Negative for pain or tenderness. Neurologic: Negative for weakness, numbness, syncope, or seizures. Psychiatric: Positive for anxi ety and depression. PHYSICAL EXAMINATION: VITAL SIGNS: Blood pressure 102/61, pulse 76, respiratory rate 16, temperature 97.6, pulse oximetry 93% on room air, current weight 136.08 kilograms. GENERAL: Alert and oriented x3, in no acute distress, obese, appropriately interactive, but is sleep y. HEENT: PERRLA. Extraocular muscles intact. Conjunctivae within normal limits. ENT: Nasal mucosa and oropharynx within normal limits. NECK: Supple, no lymphadenopathy. CARDIOVASCULAR: Regular rate and rhythm. No murmurs or gallops. A 2+ radial and pedal pulses. RESPIRATORY: Normal effort, no retractions. Clear to auscultation bilaterally. SKIN: Warm, dry. No cyanosis or lesions. ABDOMEN: Obese, soft, nontender to palpation, normoactive bowel sounds. No mass or distention. EXTREMITIES: No cyanosis or edema. MUSCULOSKELETAL: Structure and tone within normal limits. NEUROLOGICAL: No focal deficits. Sensation within normal limits. GCS 15. PSYCHIATRIC: Appropriate. LABORATORY DATA: WBC 7.4, hemoglobin 14.0, hematocrit 41.7, platelets 138. Sodium 138, potassium 3. 4, chloride 102, CO2 of 23, BUN 19, creatinine 1.73, GFR 32, glucose 207, calcium 8.8, AST 12, ALT 9, alkaline phosphatase 77, total bilirubin 0.3. EKG normal sinus rhythm, no ischemic changes. ASSESSMENT AND PLAN: This is a 42-year-old female, who presents with: 1. Near syncope, likely secondary to symptomatic hypotension. The patient has had low blood pressur es recently documented on her last admission and had a low blood pressure initially here. She also h as a documented bradycardia that she was told to follow up with Dr. Kim outpatient, to be monit ored for. We will check orthostatic vital signs. Echocardiogram was normal on 04/08/2017. We will monitor on telemetry. We will give NS at 150 mL per hour. We will trend cardiac enzymes. 2. Hypokalemia. We will replete and recheck in a.m. 3. Acute kidney injury. There is a significant change from baseline 2 days ago. Hydrate with jenna l saline at 150 mL per hour. Encouraged p.o. hydration, status post 1 liter normal saline. 4. Diabetes, type 2. We will give sliding scale insulin and Accu-Cheks a.c. and at bedtime, diabeti c diet, continue home medications. 5. Hypertension. We will hold hydrochlorothiazide, as patient has been hypotensive. We will also h old losartan. 6. Chronic back pain. We will hold tramadol currently as patient has been hypotensive and has a his tory of overdose. We will give Tylenol and heating pads for pain. 7. Schizoaffective disorder. Continue home medications. 8. Polysubstance abuse. We will check a UDS. Counseling and Nicoderm patch. 9. Venous thromboembolism prophylaxis. Lovenox. DISPOSITION: Observation on telemetry. Symptomatic medications will be provided. History and physical exam as well as management discussed with Dr. Aragon.
[2017-04-12] MEDS ORDERED: Nicotine 21 MG PATCH TD SCH (09:00)
[2017-04-12] MEDS ORDERED: Enoxaparin Sodium 40 MG/0.4 ML SYRINGE SC SCH (09:00)
[2017-04-12] MEDS ORDERED: FLUVOXAMINE 100 MG PO SCH (09:00)
[2017-04-12 09:21] LABS: Anion Gap 13 mmol/L (10-20); BUN (Urea Nitrogen) 19 mg/dL (7.0-18.7); Calc. Creatinine Clearance 120 mL/min (70-130); Calcium 8.8 mg/dL (7.8-10.44); Carbon Dioxide 26 mmol/L (22-29); Chloride 104 mmol/L (98-107); Estimated GFR-MDRD 45
[2017-04-12] MEDS: Gabapentin 300 MG CAP PO SCH ×3 (10:05→19:34)
[2017-04-12] MEDS: clonazePAM 1 MG TAB PO SCH ×2 (10:05→19:33)
--- NOTE | 2017-04-12 12:14 | PDOC.EVN ---
Attending Addendum - Attending Addendum I personally evaluated the patient and discussed the management with Dr. Key. I agree with the History, Examination, Assessment and Plan documented in her H& P with any addition or exceptions noted below. Patient with recent hospitalization for symptomatic bradycardia and cardiology evaluation at that time presenting this morning for near syncope type symptoms. She complains of symptoms consistent with orthostasis, and she denies chest pain during my history. She admitted to getting home yesterday and smoking marijuana laced with cocaine, and her UDS is consistent with that. She is showing some signs of volume depletion, and has a mild JAYME that is due to decreased PO intake or possibly drug induced. We will continue fluid hydration and monitor. She is also on Gabapentin, Seroquel, and Trazodone that could be causing orthostatic symptoms. We will fluid hydrate, adjust those meds, and encourage ambulation. Recheck kidney values today and possible discharge either today or tomorrow. No evidence of cardiac cause of symptoms, and she recently have cardiac evaluation and therefore will defer on re-consult at this time.
[2017-04-12] MEDS ORDERED: traMADol HCl 50 MG TAB PO PRN (13:25)
[2017-04-12] MEDS ORDERED: Ketorolac Tromethamine 30 MG/ML VIAL IVP SCH (13:30)
[2017-04-12] MEDS ORDERED: hydrALAZINE 20 MG/ML VIAL SLOW IVP PRN (18:38)
[2017-04-12] MEDS ORDERED: Hydrochlorothiazide 25 MG TAB PO SCH (21:00)
[2017-04-12] MEDS ORDERED: traZODone HCl 50 MG TAB PO SCH (21:00)
[2017-04-13 00:09] VITALS: TEMP 98.1
[2017-04-13 04:19] VITALS: BP 175/86
[2017-04-13 04:51] LABS: #Basophils 0.1 thou/uL (0.0-0.2); #Eosinphils 0.2 thou/uL (0.0-0.7); #Lymphocytes 2.1 thou/uL (1.20-3.40); #Monocytes 0.4 thou/uL (0.11-0.59); #Neutrophils 2.8 thou/uL (1.40-6.50); %Basophils 1.2 % (0.0-1.0); %Eosinophils 3.6 % (0.0-10.0); %Lymphocytes 37.4 % (21.0-51.0); %Monocytes 6.7 % (0.0-10.0); Hematocrit 46.9 % (36.0-47.0); Red Blood Cell (RBC) Count 5.32 mill/uL (4.20-5.40); White Blood Cell (WBC) Count 5.5 thou/uL (4.8-10.8)
[2017-04-13 04:58] LABS: Anion Gap 13 mmol/L (10-20); BUN (Urea Nitrogen) 15 mg/dL (7.0-18.7); Calc. Creatinine Clearance 183 mL/min (70-130); Calcium 9.6 mg/dL (7.8-10.44); Carbon Dioxide 26 mmol/L (22-29); Chloride 102 mmol/L (98-107); Estimated GFR-MDRD 74
--- NOTE | 2017-04-14 14:11 | DIS-2 ---
DATE OF ADMISSION: 04/12/2007 DATE OF DISCHARGE: 04/13/2017 The patient left against medical advice. ADMITTING ATTENDING: Dr. Harry Aragon DISCHARGE ATTENDING: Dr. Harry Aragon RESIDENT: Shmuel Rivas M.D., PGY-1. CONSULTATIONS: None. PROCEDURES: None. PRIMARY DIAGNOSES: 1. Acute kidney injury. 2. Near syncope. 3. Hypokalemia. SECONDARY DIAGNOSES: Type 2 diabetes, hypertension, chronic back pain, schizoaffective disorder and polysubstance abuse. DISCHARGE MEDICATIONS: The patient would resume home medications. Patient left AMA. I did not add anything on. Home medications included fluvoxamine maleate 100 mg tablet p.o. q.24h., hydrochlorothi azide 25 mg b.i.d., Claritin, Seroquel 300 mg p.o. b.i.d., tramadol 50 mg q.i.d. HISTORY OF PRESENT ILLNESS/BRIEF HOSPITAL COURSE: This is a 42-year-old female who came in because s he felt like her head was swimming, started feeling weak in the knees. She said she kind of fell leslie n in the bathroom and is scared that the chest pain, fell down in the bathroom due to this. She also states that she felt like her heart was beating out of her chest. It should be noted that she was r ecently admitted and discharged 2 days ago for this, at this time she was seen by a cable lacer and checked out. It would be found out during this time we did a urine drug screen and it was found to b e positive for marijuana and cocaine. Getting further history from her, it was found out earlier argelia t night she had been with her friend and that they rolled a joint and sprinkled it with cocaine, coul d likely be the cause of these symptoms. Also, before that she reported the chest pain and squeezing pain in the middle of the chest with no radiation. During this time of her admission her CBC was no rmal. Her potassium was found to be a little bit low at 3.4, which we replaced, once it would go up to 3.6 the next day and on during this time her creatinine was 1.73, a little high. We was started h er on fluids at a rate of 125. We checked a BMP a few hours later and it had come down to 1.28 and l ater on in the afternoon it was 0.84, the acute kidney injury had resolved. During the time she repo rted getting up and walking around outside that day. She was no longer dizzy. Denied any weakness o r anything. She did state she wanted to stay 1 more night to make sure everything was okay. No acut e abnormalities have been monitored, but at this time when I came back the next morning she had left AMA overnight as her ride was there to pick her up at 4:30. CONDITION: Stable. DISCHARGE INSTRUCTIONS: 1. Location: Unknown as she ran off in the night AMA. 2. Diet is diabetic diet. ACTIVITIES: Activity as tolerated. FOLLOWUP: Follow up was not able to instruct her on followup as she left in against medical advice.
== END 2017-04-13 04:57 | disposition left against medical advice (07) ==
LOC: ERS 23:49 → 2SW 04-12 03:54
PROVIDERS: ADMIT Student in an Organized Health Care Education/Training Program; ATTEND Student in an Organized Health Care Education/Training Program
DX: N17.9 Acute kidney failure, unspecified (principal); R55 Syncope and collapse; E87.6 Hypokalemia; E11.9 Type 2 diabetes mellitus without complications; I10 Essential (primary) hypertension; M54.9 Dorsalgia, unspecified; G89.29 Other chronic pain; F25.9 Schizoaffective disorder, unspecified; F19.10 Other psychoactive substance abuse, uncomplicated; R07.9 Chest pain, unspecified; F17.210 Nicotine dependence, cigarettes, uncomplicated; Z79.899 Other long term (current) drug therapy; Z88.0 Allergy status to penicillin; Z90.49 Acquired absence of other specified parts of digestive tract; Z98.890 Other specified postprocedural states
CPT/HCPCS: 80048 ×2; 80053; 80306; 82550; 82553; 82570; 82962; 84300; 84484 ×2; 85025 ×2; 93005; 96361 ×2; 96372; 96374; 99285; 99406; G0378; 36415; 36416; 96360; A4216; J1650; J1885

== ENCOUNTER 2017-08-09 10:57 | Emergency (ER) | payer MEDICARE, OTHER ==
[2017-08-09 11:51] LABS: #Eosinphils 0.2 thou/uL (0.0-0.7); #Lymphocytes 1.3 thou/uL (1.20-3.40); #Monocytes 0.5 thou/uL (0.11-0.59); #Neutrophils 7.7 thou/uL (1.40-6.50); %Basophils 0.2 % (0.0-1.0); %Eosinophils 1.6 % (0.0-10.0); %Lymphocytes 13.3 % (21.0-51.0); %Monocytes 5.1 % (0.0-10.0); %Neutrophils 79.8 % (42.0-75.0); Hemoglobin 13.4 g/dL (12.0-16.0); Mean Corpuscular HGB CONC 34.8 g/dL (32.0-36.0); Mean Corpuscular Hemoglobin 29.2 pg (27.0-31.0); Mean Corpuscular Volume 83.9 fl (81.0-99.0); Platelet Count 223 thou/uL (130-400); RBC Distribution Width 13.1 % (11.5-14.5); Red Blood Cell (RBC) Count 4.58 mill/uL (4.20-5.40); White Blood Cell (WBC) Count 9.7 thou/uL (4.8-10.8)
[2017-08-09] MEDS ORDERED: Ondansetron HCl/PF 4 MG/2 ML Vial ONE (11:52)
[2017-08-09] MEDS ORDERED: Morphine 4 MG/ML VIAL ONE (11:55)
[2017-08-09 12:09] LABS: ALT (SGPT) 32 U/L (8-55); AST (SGOT) 13 U/L (5-34); Albumin 4.1 g/dL (3.5-5.0); Alkaline Phosphatase 75 U/L (40-150); Anion Gap 15 mmol/L (10-20); BUN (Urea Nitrogen) 7 mg/dL (7.0-18.7); Bilirubin, Total 0.4 mg/dL (0.2-1.2); Calc. Creatinine Clearance 0 mL/min (70-130); Calcium 9.6 mg/dL (7.8-10.44); Carbon Dioxide 25 mmol/L (22-29); Chloride 99 mmol/L (98-107); Estimated GFR-MDRD Greater than 90; Globulin 3.4 g/dL (2.4-3.5); Glucose 212 mg/dL (70-105); Potassium 3.8 mmol/L (3.5-5.1); Protein, Total 7.5 g/dL (6.0-8.3); Sodium 135 mmol/L (136-145)
[2017-08-09] MEDS ORDERED: Clindamycin/D5W 600 mg/50 ml Premix Bag ONE (12:27)
--- NOTE | 2017-08-09 15:32 | RAD ---
LEFT HAND 3 VIEWS: HISTORY: A 42-year-old female with hand pain. FINDINGS: There is marked dorsal soft tissue swelling noted over the hand diffusely. There is also some soft t issue swelling of the fingers. No evidence for acute fracture or dislocation. Mild degenerative tiffany nges. IMPRESSION: Prominent diffuse soft tissue swelling of the hand, wrist, and fingers without acute fracture or disl ocation. POS: [facility]
== END 2017-08-09 14:39 | disposition home or self-care (01) ==
LOC: ERS 10:57
DX: L02.512 Cutaneous abscess of left hand (principal); L02.414 Cutaneous abscess of left upper limb; L02.413 Cutaneous abscess of right upper limb; L02.416 Cutaneous abscess of left lower limb; L02.415 Cutaneous abscess of right lower limb; F41.9 Anxiety disorder, unspecified; F32.9 Major depressive disorder, single episode, unspecified; E11.9 Type 2 diabetes mellitus without complications; I10 Essential (primary) hypertension
CPT/HCPCS: 36415; 80053; 85025; 96365; 96366; 96375; 99406; J2270; J2405; J3490

== ENCOUNTER 2017-08-14 16:39 | Inpatient (IN) | payer MEDICARE, OTHER ==
[2017-08-14 19:27] LABS: #Eosinphils 0.1 thou/uL (0.0-0.7); #Lymphocytes 1.9 thou/uL (1.20-3.40); #Monocytes 0.5 thou/uL (0.11-0.59); #Neutrophils 6.7 thou/uL (1.40-6.50); %Basophils 0.4 % (0.0-1.0); %Lymphocytes 20.4 % (21.0-51.0); %Neutrophils 73.2 % (42.0-75.0); Hemoglobin 15.2 g/dL (12.0-16.0); Mean Corpuscular HGB CONC 34.6 g/dL (32.0-36.0); Mean Corpuscular Hemoglobin 28.7 pg (27.0-31.0); Mean Corpuscular Volume 82.9 fl (81.0-99.0); Mean Platelet Volume 7.6 fL (7.4-10.4); Platelet Count 258 thou/uL (130-400); RBC Distribution Width 13.2 % (11.5-14.5); White Blood Cell (WBC) Count 9.2 thou/uL (4.8-10.8)
[2017-08-14 19:50] LABS: ALT (SGPT) 14 U/L (8-55); AST (SGOT) 13 U/L (5-34); Albumin 4.1 g/dL (3.5-5.0); Alkaline Phosphatase 86 U/L (40-150); Anion Gap 18 mmol/L (10-20); BUN (Urea Nitrogen) 6 mg/dL (7.0-18.7); Bilirubin, Total 0.3 mg/dL (0.2-1.2); Calc. Creatinine Clearance 0 mL/min (70-130); Calcium 9.8 mg/dL (7.8-10.44); Carbon Dioxide 24 mmol/L (22-29); Chloride 98 mmol/L (98-107); Estimated GFR-MDRD 88; Glucose 153 mg/dL (70-105); Potassium 3.7 mmol/L (3.5-5.1); Protein, Total 8.1 g/dL (6.0-8.3); Sodium 136 mmol/L (136-145)
[2017-08-14 20:17] LABS: Prothrombin Time 13.7 SEC (12.0-14.7)
--- NOTE | 2017-08-14 21:07 | RAD ---
RADIOGRAPH LEFT HAND 3 VIEWS: 08/14/17 HISTORY: 42-year-old female with left hand pain. COMPARISON: 08/09/17 FINDINGS: There is soft tissue swelling of the hand, including dorsum and digits. No periosteal elevation, perm eative lesion, fracture, or dislocation. Joint spaces are maintained. Minimal DJD at STT complex and first C[facility]. No major interval change. IMPRESSION: 1. Diffuse soft tissue swelling. 2. No major osseous abnormality. POS: [facility]
[2017-08-14] MEDS ORDERED: HYDROcodone/Acetaminophen 5/325 mg Tablet ONE (21:46)
[2017-08-14] MEDS ORDERED: Ondansetron HCl/PF 4 MG/2 ML Vial ONE (23:28)
[2017-08-14] MEDS ORDERED: Clindamycin/D5W 900 mg/50 ml Premix Bag ONE (23:29)
[2017-08-14] MEDS ORDERED: Morphine 4 MG/ML VIAL ONE (23:29)
[2017-08-15] MEDS ORDERED: Cefepime 1 GM in Syringe 10 ML SLOW IVP SCH (00:45)
[2017-08-15] MEDS ORDERED: Nicotine 21 MG PATCH TOP SCH (01:15)
[2017-08-15] MEDS ORDERED: Morphine 4 MG/ML VIAL ONE (04:20)
[2017-08-15] MEDS ORDERED: Ondansetron ODT 4 MG TAB SL PRN (07:05)
[2017-08-15] MEDS ORDERED: Acetaminophen 325 MG TAB PO PRN ×2 (07:05→11:17)
[2017-08-15] MEDS ORDERED: Ondansetron HCl/PF 4 MG/2 ML Vial IVP PRN (07:05)
[2017-08-15] MEDS ORDERED: Fentanyl 100 MCG/2 ML VIAL SLOW IVP SCH (08:00)
[2017-08-15 08:22] VITALS: BMI 43.1
--- NOTE | 2017-08-15 08:53 | CON ---
DATE OF CONSULTATION: 08/15/2017 HISTORY OF PRESENT ILLNESS: We were asked to see patient from the Medicine Service. The patient sta rted getting some boils, abscesses. She thinks this is on past Friday. On , she was seen and had one of the abscesses opened on her right lower extremity, but she has noticed that she has an open sore now on her right dorsal part of her hand with a new abscess starting to form over her four th knuckle. She also has some new lesions on her left lower extremity and her right lower extremity just below where her other lesion was opened. These are quite painful. The patient is able to open and close her hand. The circular knitter is a little bit weak due to pain and she is able to move both lower ext remities, but she has been having problems walking because of the pain. Symptoms have gotten progres sively worse where she had to come into the emergency room and was therefore admitted. We were consu lted for possibly washing out her hand abscess. PAST MEDICAL HISTORY: Positive for diabetes, hypertension. PAST SURGICAL HISTORY: Cholecystectomy and back surgery. She does have some psychiatric history wit h anxiety and depression and there is a history of attempted suicide. ALLERGIES: PENICILLIN. CURRENT MEDICATIONS: Cleocin, Lantus, hydrochlorothiazide, Seroquel, clonazepam, tramadol. SOCIAL HISTORY: Lives on her own. Uses alcohol and nicotine products. REVIEW OF SYSTEMS: Patient has lesions on the left upper extremity, bilateral lower extremities and could not find any new lesions on the right upper extremity. Complains of pain, some stiffness in he r joints, but able to move all well. No chest pain or shortness of breath currently. PHYSICAL EXAMINATION: GENERAL: Well-nourished, well-developed, obese female resting in bed, currently in no acute distress . Speech clear. Answers questions appropriately. Alert and oriented x3. HEENT: Normal exam. Face symmetric, tongue midline. NECK: Supple. MUSCULOSKELETAL: Upper extremities moving both well. She has a little bit of stiffness when making a fist on her left upper extremity, but is able to almost open her hand fully. She is able to open h er fingers and move everything well. Sensations are intact. To both upper extremities, she also has two lesions one open, one forming on the dorsal side of her left hand. Right upper extremity, I did not find any new lesions, IVs in the left upper extremity. Lower extremity, she does have the right lower extremity bandage from a lesion that was opened on , and looks like there is a new les ion forming distal to that on the medial aspect of her right lower extremity. Left lower extremity, she does have few lesions forming. She is able to move both lower extremities well and sensations ar e intact. ASSESSMENT: Multiple abscesses, multiple extremities. PLAN: I spoke with Dr. Chaparro, we are going to look at patient's abscess to see if any of these ne ed to be drained or if she can be treated conservatively with antibiotics. We ordered the patient so me pain meds. Reviewed her history. Medicine is on the case with her also, but I have told the pallavi ent that we may need to go and open this up and clean out to help her heal quickly and she is amenabl e to go forth with any procedure to help her feel better and get over this as quick as she can. Curr ently she has got some vancomycin. She was put on Cleocin and she is n.p.o.
[2017-08-15] MEDS: Fentanyl 100 MCG/2 ML VIAL SLOW IVP PRN ×4 (10:23→22:29)
[2017-08-15] MEDS: Nicotine 21 MG PATCH TOP SCH (10:24)
[2017-08-15] MEDS ORDERED: Guaifenesin DM 100-10/5 ML UDCUP PO PRN (11:17)
[2017-08-15] MEDS ORDERED: Dextrose 50% Abboject 50 ML SYRINGE SLOW IVP PRN (11:17)
[2017-08-15] MEDS ORDERED: cefTRIAXone\\ROCEPHIN 1 GM in Sodium Chloride 0.9% 100 ML IVPB SCH (11:17)
[2017-08-15] MEDS ORDERED: Dextrose 5% in Water 1,000 ML IV PRN (11:17)
[2017-08-15] MEDS ORDERED: Mag-Al 1200 mg/1200 mg/30 ML UDCUP PO PRN (11:17)
[2017-08-15] MEDS ORDERED: traMADol HCl 50 MG TAB PO PRN (11:17)
[2017-08-15] MEDS ORDERED: cefTRIAXone\\ROCEPHIN 1 GM, Syringe 0.4 ML in Sterile Water 9.6 ML SLOW IVP SCH (13:00)
[2017-08-15] MEDS: cefTRIAXone\\ROCEPHIN 1 GM, Syringe 0.4 ML in Sterile Water 9.6 ML SLOW IVP SCH (13:41)
[2017-08-15] MEDS ORDERED: clonazePAM 1 MG TAB PO SCH (15:00)
[2017-08-15] MEDS ORDERED: QUETIAPINE FUMARATE PO SCH (16:00)
[2017-08-15] MEDS: HumaLOG 300 UNITS/3 ML VIAL SC PRN (16:28)
--- NOTE | 2017-08-15 17:07 | HP ---
REASON FOR ADMISSION: Multiple abscesses. HISTORY OF PRESENTING ILLNESS: The patient gives history of having small pimples, on her left hand, right ankle and left leg, which started on Friday. This started to slowly become bigger and become purulent. On Friday, she had come to the emergency room and was given clindamycin and penicillin. She had two abscesses on her left hand, one on the right ankle and two on the left leg, one got opened up. Yesterday, she went to see her primary care physician, Dr. Musa, who asked her to go to the emergency room as the abscesses have become bigger. The patient does not recall having had MRSA or Staph infection in the past. No complaints of fever at home. PAST MEDICAL AND SURGICAL HISTORY: History of diabetes mellitus type 2, hypertension, obesity, cholecystectomy, back surgery for disk disease, anxiety and depression. CURRENT MEDICATIONS: The patient is on clindamycin 300 mg p.o. 3 times daily, Lantus 20 units subcutaneously at bedtime, hydrochlorothiazide 25 mg twice daily , Seroquel 400 mg p.o. at bedtime, clonazepam 2 mg p.o. 3 times daily and Ultram p.r.n. for pain. ALLERGIES: PENICILLIN. PERSONAL HISTORY: Smokes 1-1/2 packs a day. Uses cocaine and the last usage was 1 week back. Drinks 2-3 beers on a weekly basis. The patient denies IV drug abuse, but has done it way back. She is currently disabled due to mental health. FAMILY HISTORY: Mother at the age of 65 years. She has had history of lymphoma. Father of stroke at the age of 67 years. CODE STATUS: FULL. Power of windows consultant is her brother, Mr. Gallegos. REVIEW OF SYSTEMS: The following complete review of systems was negative, unless otherwise mentioned in the HPI or below: Constitutional: Weight loss or gain, ability to conduct usual activities. Skin: Rash, itching. Eyes: Double vision, pain. ENT/Mouth: Nose bleeding, neck stiffness, pain, tenderness. Cardiovascular: Palpitations, dyspnea on exertion, orthopnea. Respiratory: Shortness of breath, wheezing, cough, hemoptysis, fever or night sweats. Gastrointestinal: Poor appetite, abdominal pain, heartburn, nausea, vomiting, constipation, or diarrhea. Genitourinary: Urgency, frequency, dysuria, nocturia. Musculoskeletal: Pain, swelling. Neurologic/Psychiatric: Anxiety, depression. Allergy/Immunologic: Skin rash, bleeding tendency. PHYSICAL EXAMINATION: GENERAL: The patient is a 42-year-old female who is currently not in any acute distress. VITAL SIGNS: Blood pressure 148/90, pulse 90 per minute, respiratory rate 20 per minute, temperature 98.4 degrees Fahrenheit and saturating 97% on room air. NECK: Supple. No elevated JVD. HEENT: Eyes: Extraocular muscles intact. Pupils are reacting to light. Oral cavity; mucous membranes are moist. No exudates or congestion. CARDIOVASCULAR SYSTEM: S1 and S2 heard. Regular rhythm. RESPIRATORY SYSTEM: Air entry 1+ bilaterally. No rales or rhonchi. ABDOMEN: Soft. Bowel sounds heard. No tenderness, rigidity or guarding. EXTREMITIES: The patient's right fischer has small abscess, left hand has 1 x 2 cm abscess, which is opened up over the second metatarsal and has an early abscess with erythema and induration over the head of fourth metatarsal on the left hand. No peripheral edema or calf tenderness. VASCULAR SYSTEM: Peripheral pulses 1+ bilateral. No ischemic ulcerations or gangrene. CENTRAL NERVOUS SYSTEM: No gross focal deficits seen. The patient is alert, awake and oriented well. PSYCHIATRIC SYSTEM: The patient's mood is euthymic. No hallucinations or delusions. LABORATORY AND X-RAY FINDINGS: White count of 9, hemoglobin and hematocrit 15 and 43, platelet count 258 with 73% neutrophils. PT/INR within normal limits. Electrolytes are stable. BUN 6, creatinine 0.7 and serum glucose 153. Liver enzymes within normal limits. CRP 1.95. Albumin is 4.1. Blood cultures x2 no growth. Hand x-ray done shows soft tissue swelling with no major osseous abnormality. CLINICAL IMPRESSION AND PLAN: The patient will be admitted to medical/Med surgical floor for multiple abscesses likely Staph infection with history of diabetes. She has been evaluated by Orthopedic Surgery as well. The patient is currently on vancomycin and ceftriaxone. We will continue her on Levemir 20 units subcu at bedtime along with coverage with moderate Humalog at bedtime scale. The patient is also requesting her Klonopin for her anxiety along with Seroquel at bedtime. She is also on fentanyl and Ultram p.r.n. for pain. We will continue to closely monitor. We will obtain wound cultures and wound care consultation as well. KESHIA
[2017-08-15] MEDS ORDERED: OLANZAPINE 10 MG PO SCH (21:00)
[2017-08-15] MEDS ORDERED: Vancomycin HCl 1 GM in Premix Bag 1 BAG IVPB SCH (21:00)
[2017-08-15] MEDS ORDERED: Non-Formulary Item 1 EACH (Insulin Glargine,Hum.Rec.Anlog [Lantus] 20 UNITS) SQ SCH (21:00)
[2017-08-15] MEDS: OLANZapine 5 MG TAB PO SCH (22:05)
[2017-08-15] MEDS: Famotidine 20 MG TAB PO SCH (22:05)
[2017-08-15] MEDS: Docusate 100 MG CAP PO SCH (22:05)
[2017-08-15] MEDS: Mirtazapine 30 MG TAB PO SCH (22:06)
[2017-08-15] MEDS: Insulin Detemir 100 UNITS/ML 20 UNITS in Pre-Filled Syringe 1 EACH SC SCH (22:09)
[2017-08-16] MEDS ORDERED: clonazePAM 1 MG TAB PO SCH ×2 (00:30→23:00)
[2017-08-16 05:00] LABS: #Eosinphils 0.1 thou/uL (0.0-0.7); #Lymphocytes 2.1 thou/uL (1.20-3.40); #Monocytes 0.4 thou/uL (0.11-0.59); #Neutrophils 4.4 thou/uL (1.40-6.50); %Basophils 0.1 % (0.0-1.0); %Lymphocytes 29.3 % (21.0-51.0); %Monocytes 6.1 % (0.0-10.0); %Neutrophils 62.5 % (42.0-75.0); Hemoglobin 12.8 g/dL (12.0-16.0); Mean Corpuscular HGB CONC 33.8 g/dL (32.0-36.0); Mean Corpuscular Hemoglobin 28.6 pg (27.0-31.0); Mean Corpuscular Volume 84.5 fl (81.0-99.0); Mean Platelet Volume 7.6 fL (7.4-10.4); Platelet Count 181 thou/uL (130-400); RBC Distribution Width 13.1 % (11.5-14.5); Red Blood Cell (RBC) Count 4.48 mill/uL (4.20-5.40)
[2017-08-16 05:09] LABS: Anion Gap 9 mmol/L (10-20); BUN (Urea Nitrogen) 8 mg/dL (7.0-18.7); Calc. Creatinine Clearance 255 mL/min (70-130); Calcium 8.6 mg/dL (7.8-10.44); Carbon Dioxide 28 mmol/L (22-29); Chloride 103 mmol/L (98-107); Estimated GFR-MDRD Greater than 90; Glucose 143 mg/dL (70-105); Potassium 3.3 mmol/L (3.5-5.1); Sodium 137 mmol/L (136-145)
[2017-08-16] MEDS: Fentanyl 100 MCG/2 ML VIAL SLOW IVP PRN ×4 (06:34→21:53)
[2017-08-16] MEDS ORDERED: Fentanyl 250 MCG/5 ML VIAL ONE (07:36)
[2017-08-16] MEDS ORDERED: Neomycin-Polymyxin 1 ML AMP ONE (07:49)
[2017-08-16] MEDS ORDERED: Midazolam HCl 2 mg/2 ml Vial ONE (08:01)
[2017-08-16] MEDS ORDERED: Promethazine HCl 25 MG/ML VIAL SLOW IVP PRN (09:29)
[2017-08-16] MEDS ORDERED: Ondansetron HCl/PF 4 MG/2 ML Vial IVP PRN (09:29)
[2017-08-16] MEDS ORDERED: Promethazine HCl 25 MG/ML VIAL IM PRN (09:29)
[2017-08-16] MEDS ORDERED: Fentanyl 100 MCG/2 ML VIAL ONE (09:38)
--- NOTE | 2017-08-16 11:41 | OP ---
DATE OF PROCEDURE: 08/16/2017 PREOPERATIVE DIAGNOSES: 1. Right distal fischer abscess x2. 2. Left dorsal hand abscess x2. POSTOPERATIVE DIAGNOSES: 1. Right distal fischer abscess x2. 2. Left dorsal hand abscess x2. SURGICAL PROCEDURES: 1. Incision and drainage of right subcutaneous distal fischer abscess including skin and subcutaneous t issue. 2. Incision and drainage of left dorsal hand abscess. ANESTHESIA: General. SURGEON: Raul Chaparro M.D. TOURNIQUET TIME: Zero. SPECIMEN: Swab from right leg sent for Gram stain culture and sensitivity and second swab from left hand sent for Gram stain culture and sensitivity. COMPLICATIONS: None. DRAINS: None. OUTCOME: Satisfactory. INDICATIONS: The patient is a 42-year-old lady who reports spontaneous presence of initially an absc ess overlying the index finger, metacarpal dorsally which has been drained and now a secondary overly ing the neck of the 4th metacarpal with fluctuance and redness. She also has developed spontaneous s ubcutaneous abscesses of the right lower extremity with one of these being drained already and the se cond one in the pretibial region of the distal fischer with now pointing and obvious abscess formation. She does not appear frankly septic and these appeared to be limited to the subcutaneous tissue. The patient now scheduled for drainage of the two new areas and repeat debridement of the previously dec ompressed abscesses. PROCEDURE IN DETAIL: The patient was brought to the operating room and a timeout performed and then a sterile prep and drape performed of the right lower extremity. She had a medial skin abscess that had been previously drained and was draining some serous fluid. This was curetted to remove some fib rinous exudate including skin and subcutaneous tissue, but not extending below the fascial layer. On ce fully curetted out such that no viable tissue remained. Attention was placed at the second absces s site in the pretibial area. A scalpel was used to incise this area and purulent material did come out from the subcutaneous tissue. This was swabbed and sent for Gram stain culture and sensitivity. Next, a curette was used to further explore the depths of the abscess, it was found not to extend be low the fascia and once fully decompressed, it was then irrigated with normal saline with bulb syring e as was the original abscess site also. Following the irrigation of the abscess, the two cavities w ere packed with gauze and then dressed with gauze, Kerlix, and Shaquille wrap dressing. Next, attention wa s placed at the left hand. The previously decompressed abscess overlying the index metacarpal was ag ain inspected and then some fibrinous exudate removed with a curette. This abscess again limited to the skin and subcutaneous tissue extending down to the extensor tendon with the extensor tendon visib le, but no tracking proximally or distally was noted. Once fully freed and cleared of fibrinous exud ate and nonviable tissue, this was irrigated with bulb syringe. The second abscess overlying the fou rth metacarpal was then incised with a scalpel. Some minor purulent material came from this area. T his again extended down to the extensor sheath, but not into the joint of the finger itself and was p rimarily localized to the subcutaneous tissue. A curette was used to further disrupt the levine of th e small abscess cavity and then the wound irrigated with normal saline. These 2 areas were then pack ed in similar fashion used for the lower leg with gauze and then dressed with gauze, Kerlix, and Shaquille wrap dressing. At the completion of this, the patient was then transferred to recovery room in sta e condition. There were no complications. She will begin daily dressing changes with wound care lita monroy.
[2017-08-16] MEDS: Nicotine 21 MG PATCH TOP SCH (12:52)
[2017-08-16] MEDS: Enoxaparin Sodium 40 MG/0.4 ML SYRINGE SC SCH (12:53)
[2017-08-16] MEDS: Docusate 100 MG CAP PO SCH ×2 (12:55→21:53)
[2017-08-16] MEDS: Famotidine 20 MG TAB PO SCH ×2 (12:55→21:51)
[2017-08-16] MEDS: cefTRIAXone\\ROCEPHIN 1 GM, Syringe 0.4 ML in Sterile Water 9.6 ML SLOW IVP SCH (12:59)
[2017-08-16 13:19] LABS: Vancomycin, Trough 20.2 ug/mL
--- NOTE | 2017-08-16 14:44 | PDOC.PN ---
- Subjective Encounter Start Date: 08/16/17 Encounter Start Time: 12:45 Subjective: is lethargic but responds to verbal questions -: had I&D this am - Objective Resuscitation Status: Resuscitation Status FULL:Full Resuscitation MAR Reviewed: Yes Vital Signs & Weight: Vital Signs (12 hours) Temp Pulse Resp BP Pulse Ox 08/16/17 04:00 97.8 F 80 16 149/87 H 95 Weight Admit Weight 318 lb Weight 318 lb I&O: 08/15/17 08/16/17 08/17/17 06:59 06:59 06:59 Intake Total 200 Balance 200 Result Diagrams: 08/16/17 04:41 08/16/17 04:41 Additional Labs: Accuchecks 08/16/17 08/16/17 08/15/17 11:15 05:14 20:38 POC Glucose 169 H 143 H 240 H 08/15/17 15:54 POC Glucose 293 H Phys Exam - Physical Examination HEENT: PERRLA, moist MMs Neck: no JVD, supple Respiratory: no wheezing, no rales Cardiovascular: RRR, no significant murmur Gastrointestinal: soft, non-tender, positive bowel sounds Musculoskeletal: no edema, pulses present Neurological: non-focal, moves all 4 limbs Psychiatric: A&O x 3 Dx/Plan (1) Abscess of multiple sites Code(s): L02.91 - CUTANEOUS ABSCESS, UNSPECIFIED Status: Acute Comment: s/p I&D 08/16/17 (2) Morbid obesity Code(s): E66.01 - MORBID (SEVERE) OBESITY DUE TO EXCESS CALORIES Status: Chronic (3) Diabetes mellitus Code(s): E11.9 - TYPE 2 DIABETES MELLITUS WITHOUT COMPLICATIONS Status: Chronic Qualifiers: Diabetes mellitus type: type 2 Diabetes mellitus snf insulin use: with snf use Diabetes mellitus complication status: with unspecified complications Qualified Code(s): E11.8 - Type 2 diabetes mellitus with unspecified complications; Z79.4 - FDC (current) use of insulin; Z79.4 - salvage determiner (current) use of insulin; Z79.4 - FDC (current) use of insulin; Z79.4 - salvage determiner (current) use of insulin (4) Schizoaffective disorder Code(s): F25.9 - SCHIZOAFFECTIVE DISORDER, UNSPECIFIED Status: Chronic Qualifiers: Schizoaffective disorder type: unspecified Qualified Code(s): F25.9 - Schizoaffective disorder, unspecified (5) HTN (hypertension) Code(s): I10 - ESSENTIAL (PRIMARY) HYPERTENSION Status: Chronic Qualifiers: Hypertension type: essential hypertension Qualified Code(s): I10 - Essential (primary) hypertension - Plan is on vanc an ceftriaxone -: await culture results -: is on fluvoxamine, seroquel, zyprexa, remeron -: fentanyl prn for pain -: watch for resp depression/failure with multiple psychotropics/norcotic * . Review of Systems - Medications/Allergies Allergies/Adverse Reactions: Allergies Allergy/AdvReac Type Severity Reaction Status Date / Time Penicillins Allergy Verified 04/12/17 04:25 Medications: Current Medications Acetaminophen (Tylenol) 650 mg PO Q4H PRN PRN Reason: Headache/Fever or Pain Al Hydroxide/Mg Hydroxide (Maalox) 30 ml PO Q6H PRN PRN Reason: Heartburn or Indigestion Dextrose/Water (Dextrose 50%) 25 gm SLOW IVP PRN PRN PRN Reason: Hypoglycemia Docusate Sodium (Colace) 100 mg PO BID [facility] Last Admin: 08/16/17 12:55 Dose: 100 mg Enoxaparin Sodium (Lovenox) 40 mg SC 0900 [facility] Last Admin: 08/16/17 12:53 Dose: 40 mg Famotidine (Pepcid) 20 mg PO BID [facility] Last Admin: 08/16/17 12:55 Dose: 20 mg Fentanyl (Sublimaze) 50 mcg SLOW IVP Q4H PRN PRN Reason: Pain Last Admin: 08/16/17 12:48 Dose: 50 mcg Fluvoxamine Maleate (Luvox) 100 mg PO BID [facility] Last Admin: 08/16/17 12:55 Dose: 100 mg Glucagon (Glucagon) 1 mg IM PRN PRN PRN Reason: Hypoglycemia Guaifenesin/Dextromethorphan (Robitussin Dm) 15 ml PO Q4H PRN PRN Reason: Cough Dextrose/Water (D5w) 1,000 mls @ 0 mls/hr IV .Q0M PRN; As Directed PRN Reason: Hypoglycemia Ceftriaxone Sodium 1 gm/ (Syringe 0.4 ml/ Sterile Water) 10 mls @ 120 mls/hr SLOW IVP Q24HR [facility] Last Admin: 08/16/17 12:59 Dose: 10 mls Insulin Detemir 20 units/ (Miscellaneous Medication) 0.2 mls @ 0 mls/hr SC [facility] Last Admin: 08/15/17 22:09 Dose: 0.2 mls Vancomycin HCl 2 gm/ Sodium (Chloride) 500 mls @ 250 mls/hr IVPB Q8HR [facility] Last Admin: 08/16/17 06:24 Dose: 500 mls Insulin Human Lispro (Humalog) 0 units SC .MODERATE SLIDING SC PRN PRN Reason: Moderate Correctional Scale Last Admin: 08/15/17 16:28 Dose: 6 unit Insulin Human Lispro (Humalog) 0 units SC .BEDTIME SLIDING SC PRN PRN Reason: Bedtime Correctional Scale Mirtazapine (Remeron) 30 mg PO [facility] Last Admin: 08/15/17 22:06 Dose: 30 mg Miscellaneous Medication (Pharmacy To Dose) 1 each IVPB ONE PRN PRN Reason: DOSING Stop: 09/14/17 12:21 Nicotine (Nicoderm Patch) 21 mg TOP Q24HR [facility] Last Admin: 08/16/17 12:52 Dose: 21 mg Olanzapine (Zyprexa) 10 mg PO [facility] Last Admin: 08/15/17 22:05 Dose: 10 mg Quetiapine Fumarate (Seroquel) 50 mg PO 0900,1500 [facility] Last Admin: 08/16/17 12:55 Dose: 50 mg Sodium Chloride (Flush - Normal Saline) 10 ml IVF Q12HR [facility] Last Admin: 08/15/17 22:06 Dose: 10 ml Sodium Chloride (Flush - Normal Saline) 10 ml IVF PRN PRN PRN Reason: Saline Flush Tramadol HCl (Ultram) 50 mg PO Q4H PRN PRN Reason: Pain
[2017-08-16] MEDS ORDERED: Ondansetron HCl/PF 4 MG/2 ML Vial ONE (15:58)
[2017-08-16] MEDS ORDERED: PROPOFOL 200 MG/20 ML VIAL ONE (15:58)
[2017-08-16] MEDS ORDERED: PHENYLEPHRINE-NS 100 MCG/ML 10 ML SYRINGE ONE (15:58)
[2017-08-16] MEDS ORDERED: Lidocaine 1% PF 5 ML VIAL ONE (15:58)
[2017-08-16] MEDS ORDERED: Succinylcholine Chloride 20 MG/ML 10 ml SYRINGE FS ONE (15:58)
[2017-08-16] MEDS: HumaLOG 300 UNITS/3 ML VIAL SC PRN (16:56)
[2017-08-16] MEDS: OLANZapine 5 MG TAB PO SCH (21:51)
[2017-08-16] MEDS: Mirtazapine 30 MG TAB PO SCH (21:52)
[2017-08-16] MEDS: Insulin Detemir 100 UNITS/ML 20 UNITS in Pre-Filled Syringe 1 EACH SC SCH (21:52)
[2017-08-17] MEDS: Fentanyl 100 MCG/2 ML VIAL SLOW IVP PRN ×5 (04:16→21:50)
[2017-08-17] MEDS: HumaLOG 300 UNITS/3 ML VIAL SC PRN ×4 (05:54→21:38)
[2017-08-17] MEDS: clonazePAM 1 MG TAB PO SCH ×3 (09:10→21:31)
[2017-08-17] MEDS: Enoxaparin Sodium 40 MG/0.4 ML SYRINGE SC SCH (09:11)
[2017-08-17] MEDS: Docusate 100 MG CAP PO SCH ×2 (09:11→21:32)
[2017-08-17] MEDS: Famotidine 20 MG TAB PO SCH ×2 (09:11→21:32)
[2017-08-17] MEDS: Nicotine 21 MG PATCH TOP SCH (09:11)
--- NOTE | 2017-08-17 12:05 | PDOC.PN ---
- Subjective Encounter Start Date: 08/17/17 Encounter Start Time: 09:15 Subjective: no new complaints - Objective Resuscitation Status: Resuscitation Status FULL:Full Resuscitation MAR Reviewed: Yes Vital Signs & Weight: Vital Signs (12 hours) Temp Pulse Resp BP Pulse Ox 08/17/17 11:44 98.3 F 72 20 158/80 H 93 L 08/17/17 10:06 156/79 H 08/17/17 09:30 73 164/89 H 08/17/17 07:35 98.0 F 73 18 171/97 H 93 L 08/17/17 04:15 98.2 F 74 18 168/97 H 94 L Weight Admit Weight 318 lb Weight 318 lb I&O: 08/16/17 08/17/17 08/18/17 06:59 06:59 06:59 Intake Total 200 3060 Balance 200 3060 Result Diagrams: 08/16/17 04:41 08/16/17 04:41 Additional Labs: Accuchecks 08/17/17 08/16/17 08/16/17 11:44 22:06 15:54 POC Glucose 209 H 149 H 243 H Phys Exam - Physical Examination HEENT: PERRLA, moist MMs Neck: no JVD, supple Respiratory: no wheezing, no rales Cardiovascular: RRR, no significant murmur Gastrointestinal: soft, non-tender, positive bowel sounds Musculoskeletal: pulses present Neurological: non-focal, moves all 4 limbs Psychiatric: A&O x 3 Dx/Plan (1) Abscess of multiple sites Code(s): L02.91 - CUTANEOUS ABSCESS, UNSPECIFIED Status: Acute Comment: s/p I&D 08/16/17 (2) Morbid obesity Code(s): E66.01 - MORBID (SEVERE) OBESITY DUE TO EXCESS CALORIES Status: Chronic (3) Diabetes mellitus Code(s): E11.9 - TYPE 2 DIABETES MELLITUS WITHOUT COMPLICATIONS Status: Chronic Qualifiers: Diabetes mellitus type: type 2 Diabetes mellitus correction insulin use: with correction use Diabetes mellitus complication status: with unspecified complications Qualified Code(s): E11.8 - Type 2 diabetes mellitus with unspecified complications; Z79.4 - intermediate manager (current) use of insulin; Z79.4 - FPC (current) use of insulin; Z79.4 - intermediate manager (current) use of insulin; Z79.4 - intermediate manager (current) use of insulin (4) Schizoaffective disorder Code(s): F25.9 - SCHIZOAFFECTIVE DISORDER, UNSPECIFIED Status: Chronic Qualifiers: Schizoaffective disorder type: unspecified Qualified Code(s): F25.9 - Schizoaffective disorder, unspecified (5) HTN (hypertension) Code(s): I10 - ESSENTIAL (PRIMARY) HYPERTENSION Status: Chronic Qualifiers: Hypertension type: essential hypertension Qualified Code(s): I10 - Essential (primary) hypertension - Plan is on vanc and ceftriaxone -: await culture result -: to amb in hallway as tolerated -: may dc home if ok with ortho in am -: ?minocycline with bactrim * . Review of Systems - Medications/Allergies Allergies/Adverse Reactions: Allergies Allergy/AdvReac Type Severity Reaction Status Date / Time Penicillins Allergy Verified 04/12/17 04:25 Medications: Current Medications Acetaminophen (Tylenol) 650 mg PO Q4H PRN PRN Reason: Headache/Fever or Pain Al Hydroxide/Mg Hydroxide (Maalox) 30 ml PO Q6H PRN PRN Reason: Heartburn or Indigestion Clonazepam (Klonopin) 2 mg PO TID [facility] Last Admin: 08/17/17 09:10 Dose: 2 mg Dextrose/Water (Dextrose 50%) 25 gm SLOW IVP PRN PRN PRN Reason: Hypoglycemia Docusate Sodium (Colace) 100 mg PO BID [facility] Last Admin: 08/17/17 09:11 Dose: Not Given Enoxaparin Sodium (Lovenox) 40 mg SC 0900 [facility] Last Admin: 08/17/17 09:11 Dose: 40 mg Famotidine (Pepcid) 20 mg PO BID [facility] Last Admin: 08/17/17 09:11 Dose: 20 mg Fentanyl (Sublimaze) 50 mcg SLOW IVP Q4H PRN PRN Reason: Pain Last Admin: 08/17/17 09:02 Dose: 50 mcg Fluvoxamine Maleate (Luvox) 100 mg PO BID [facility] Last Admin: 08/17/17 09:31 Dose: 100 mg Glucagon (Glucagon) 1 mg IM PRN PRN PRN Reason: Hypoglycemia Guaifenesin/Dextromethorphan (Robitussin Dm) 15 ml PO Q4H PRN PRN Reason: Cough Dextrose/Water (D5w) 1,000 mls @ 0 mls/hr IV .Q0M PRN; As Directed PRN Reason: Hypoglycemia Ceftriaxone Sodium 1 gm/ (Syringe 0.4 ml/ Sterile Water) 10 mls @ 120 mls/hr SLOW IVP Q24HR [facility] Last Admin: 08/16/17 12:59 Dose: 10 mls Insulin Detemir 20 units/ (Miscellaneous Medication) 0.2 mls @ 0 mls/hr SC [facility] Last Admin: 08/16/17 21:52 Dose: 0.2 mls Vancomycin HCl 2 gm/ Sodium (Chloride) 500 mls @ 250 mls/hr IVPB Q8HR [facility] Last Admin: 08/17/17 05:49 Dose: 500 mls Insulin Human Lispro (Humalog) 0 units SC .MODERATE SLIDING SC PRN PRN Reason: Moderate Correctional Scale Last Admin: 08/17/17 05:54 Dose: 2 unit Insulin Human Lispro (Humalog) 0 units SC .BEDTIME SLIDING SC PRN PRN Reason: Bedtime Correctional Scale Mirtazapine (Remeron) [address] [facility] Last Admin: 08/16/17 21:52 Dose: 30 mg Miscellaneous Medication (Pharmacy To Dose) 1 each IVPB ONE PRN PRN Reason: DOSING Stop: 09/14/17 12:21 Nicotine (Nicoderm Patch) 21 mg TOP Q24HR [facility] Last Admin: 08/17/17 09:11 Dose: 21 mg Olanzapine (Zyprexa) [address] [facility] Last Admin: 08/16/17 21:51 Dose: 10 mg Quetiapine Fumarate (Seroquel) 50 mg PO 0900,1500 [facility] Last Admin: 08/17/17 09:10 Dose: 50 mg Sodium Chloride (Flush - Normal Saline) 10 ml IVF Q12HR [facility] Last Admin: 08/17/17 09:04 Dose: Not Given Sodium Chloride (Flush - Normal Saline) 10 ml IVF PRN PRN PRN Reason: Saline Flush Tramadol HCl (Ultram) 50 mg PO Q4H PRN PRN Reason: Pain
[2017-08-17] MEDS: cefTRIAXone\\ROCEPHIN 1 GM, Syringe 0.4 ML in Sterile Water 9.6 ML SLOW IVP SCH (13:14)
[2017-08-17 13:29] LABS: Vancomycin, Trough 17.5 ug/mL
[2017-08-17] MEDS ORDERED: Hydrochlorothiazide 25 MG TAB PO SCH (18:15)
[2017-08-17] MEDS: OLANZapine 5 MG TAB PO SCH (21:32)
[2017-08-17] MEDS: Mirtazapine 30 MG TAB PO SCH (21:33)
[2017-08-17] MEDS: Insulin Detemir 100 UNITS/ML 20 UNITS in Pre-Filled Syringe 1 EACH SC SCH (21:37)
[2017-08-18] MEDS: Fentanyl 100 MCG/2 ML VIAL SLOW IVP PRN ×5 (03:35→22:00)
[2017-08-18] MEDS: HumaLOG 300 UNITS/3 ML VIAL SC PRN ×4 (06:31→21:02)
[2017-08-18 08:15] LABS: #Eosinphils 0.2 thou/uL (0.0-0.7); #Lymphocytes 1.6 thou/uL (1.20-3.40); #Monocytes 0.4 thou/uL (0.11-0.59); #Neutrophils 4.1 thou/uL (1.40-6.50); %Basophils 0.1 % (0.0-1.0); %Eosinophils 3.3 % (0.0-10.0); %Lymphocytes 25.6 % (21.0-51.0); %Monocytes 6.7 % (0.0-10.0); %Neutrophils 64.4 % (42.0-75.0); Hemoglobin 12.7 g/dL (12.0-16.0); Mean Corpuscular HGB CONC 33.2 g/dL (32.0-36.0); Mean Corpuscular Volume 84.2 fl (81.0-99.0); Mean Platelet Volume 7.7 fL (7.4-10.4); Platelet Count 169 thou/uL (130-400); RBC Distribution Width 13.2 % (11.5-14.5); Red Blood Cell (RBC) Count 4.56 mill/uL (4.20-5.40); White Blood Cell (WBC) Count 6.4 thou/uL (4.8-10.8)
[2017-08-18 08:33] LABS: Anion Gap 11 mmol/L (10-20); BUN (Urea Nitrogen) 6 mg/dL (7.0-18.7); Calc. Creatinine Clearance 259 mL/min (70-130); Calcium 9.3 mg/dL (7.8-10.44); Carbon Dioxide 30 mmol/L (22-29); Chloride 98 mmol/L (98-107); Estimated GFR-MDRD Greater than 90; Glucose 137 mg/dL (70-105); Potassium 3.5 mmol/L (3.5-5.1); Sodium 135 mmol/L (136-145)
[2017-08-18] MEDS: clonazePAM 1 MG TAB PO SCH ×3 (08:36→20:31)
[2017-08-18] MEDS: Docusate 100 MG CAP PO SCH ×2 (08:36→21:51)
[2017-08-18] MEDS: Famotidine 20 MG TAB PO SCH ×2 (08:37→20:32)
[2017-08-18] MEDS: Enoxaparin Sodium 40 MG/0.4 ML SYRINGE SC SCH (08:37)
[2017-08-18] MEDS: Hydrochlorothiazide 25 MG TAB PO SCH (08:37)
[2017-08-18] MEDS: Nicotine 21 MG PATCH TOP SCH (08:49)
--- NOTE | 2017-08-18 11:39 | PDOC.PN ---
- Subjective Encounter Start Date: 08/18/17 Encounter Start Time: 10:15 Subjective: no new complaints -: has been going in her wheelchair out with family/friend - Objective Resuscitation Status: Resuscitation Status FULL:Full Resuscitation MAR Reviewed: Yes Vital Signs & Weight: Vital Signs (12 hours) Temp Pulse Resp BP Pulse Ox 08/18/17 11:29 98.1 F 74 20 199/90 H 92 L 08/18/17 08:00 98.3 F 73 14 170/96 H 94 L 08/18/17 04:00 98.2 F 74 18 169/92 H 94 L 08/18/17 00:00 98.4 F 73 18 169/92 H 94 L Weight Admit Weight 318 lb Weight 318 lb I&O: 08/17/17 08/18/17 08/19/17 06:59 06:59 06:59 Intake Total 3060 3971 Balance 3060 3971 Result Diagrams: 08/18/17 08:02 08/18/17 08:02 Additional Labs: Accuchecks 08/18/17 08/17/17 08/17/17 06:25 21:12 16:44 POC Glucose 171 H 249 H 220 H 08/17/17 08/17/17 11:44 05:38 POC Glucose 209 H 189 H Phys Exam - Physical Examination HEENT: PERRLA, moist MMs Neck: no JVD, supple Respiratory: no wheezing, no rales Cardiovascular: RRR, no significant murmur Gastrointestinal: soft, non-tender, positive bowel sounds Musculoskeletal: no edema, pulses present Neurological: non-focal, moves all 4 limbs Psychiatric: A&O x 3 Dx/Plan (1) Abscess of multiple sites Code(s): L02.91 - CUTANEOUS ABSCESS, UNSPECIFIED Status: Acute Comment: s/p I&D 08/16/17 (2) Morbid obesity Code(s): E66.01 - MORBID (SEVERE) OBESITY DUE TO EXCESS CALORIES Status: Chronic (3) Diabetes mellitus Code(s): E11.9 - TYPE 2 DIABETES MELLITUS WITHOUT COMPLICATIONS Status: Chronic Qualifiers: Diabetes mellitus type: type 2 Diabetes mellitus halfway insulin use: with halfway use Diabetes mellitus complication status: with unspecified complications Qualified Code(s): E11.8 - Type 2 diabetes mellitus with unspecified complications; Z79.4 - shelter (current) use of insulin; Z79.4 - shelter (current) use of insulin; Z79.4 - shelter (current) use of insulin; Z79.4 - shelter (current) use of insulin (4) Schizoaffective disorder Code(s): F25.9 - SCHIZOAFFECTIVE DISORDER, UNSPECIFIED Status: Chronic Qualifiers: Schizoaffective disorder type: unspecified Qualified Code(s): F25.9 - Schizoaffective disorder, unspecified (5) HTN (hypertension) Code(s): I10 - ESSENTIAL (PRIMARY) HYPERTENSION Status: Chronic Qualifiers: Hypertension type: essential hypertension Qualified Code(s): I10 - Essential (primary) hypertension - Plan will switch to bactrim ds for 10 days -: may dc home if ok with ortho -: wound care instructions per ortho -: motrin prn for pain, no narcotic prescriptions will be given from [facility] -: to f/u with PCP in 1 week * . Review of Systems - Medications/Allergies Allergies/Adverse Reactions: Allergies Allergy/AdvReac Type Severity Reaction Status Date / Time Penicillins Allergy Verified 04/12/17 04:25 Medications: Current Medications Acetaminophen (Tylenol) 650 mg PO Q4H PRN PRN Reason: Headache/Fever or Pain Al Hydroxide/Mg Hydroxide (Maalox) 30 ml PO Q6H PRN PRN Reason: Heartburn or Indigestion Clonazepam (Klonopin) 2 mg PO TID [facility] Last Admin: 08/18/17 08:36 Dose: 2 mg Dextrose/Water (Dextrose 50%) 25 gm SLOW IVP PRN PRN PRN Reason: Hypoglycemia Docusate Sodium (Colace) 100 mg PO BID [facility] Last Admin: 08/18/17 08:36 Dose: Not Given Enoxaparin Sodium (Lovenox) 40 mg SC 0900 [facility] Last Admin: 08/18/17 08:37 Dose: 40 mg Famotidine (Pepcid) 20 mg PO BID [facility] Last Admin: 08/18/17 08:37 Dose: 20 mg Fentanyl (Sublimaze) 50 mcg SLOW IVP Q4H PRN PRN Reason: Pain Last Admin: 08/18/17 08:03 Dose: 50 mcg Fluvoxamine Maleate (Luvox) 100 mg PO BID [facility] Last Admin: 08/18/17 08:37 Dose: 100 mg Glucagon (Glucagon) 1 mg IM PRN PRN PRN Reason: Hypoglycemia Guaifenesin/Dextromethorphan (Robitussin Dm) 15 ml PO Q4H PRN PRN Reason: Cough Hydrochlorothiazide (Hydrochlorothiazide) 25 mg PO DAILY [facility] Last Admin: 08/18/17 08:37 Dose: 25 mg Dextrose/Water (D5w) 1,000 mls @ 0 mls/hr IV .Q0M PRN; As Directed PRN Reason: Hypoglycemia Ceftriaxone Sodium 1 gm/ (Syringe 0.4 ml/ Sterile Water) 10 mls @ 120 mls/hr SLOW IVP Q24HR [facility] Last Admin: 08/17/17 13:14 Dose: 10 mls Insulin Detemir 20 units/ (Miscellaneous Medication) 0.2 mls @ 0 mls/hr SC [facility] Last Admin: 08/17/17 21:37 Dose: 0.2 mls Vancomycin HCl 2 gm/ Sodium (Chloride) 500 mls @ 250 mls/hr IVPB Q8HR [facility] Last Admin: 08/18/17 06:30 Dose: 500 mls Insulin Human Lispro (Humalog) 0 units SC .MODERATE SLIDING SC PRN PRN Reason: Moderate Correctional Scale Last Admin: 08/18/17 06:31 Dose: 2 unit Insulin Human Lispro (Humalog) 0 units SC .BEDTIME SLIDING SC PRN PRN Reason: Bedtime Correctional Scale Last Admin: 08/17/17 21:38 Dose: 2 unit Mirtazapine (Remeron) 30 mg PO [facility] Last Admin: 08/17/17 21:33 Dose: 30 mg Miscellaneous Medication (Pharmacy To Dose) 1 each IVPB ONE PRN PRN Reason: DOSING Stop: 09/14/17 12:21 Nicotine (Nicoderm Patch) 21 mg TOP Q24HR [facility] Last Admin: 08/18/17 08:49 Dose: 21 mg Olanzapine (Zyprexa) 10 mg PO [facility] Last Admin: 08/17/17 21:32 Dose: 10 mg Quetiapine Fumarate (Seroquel) 50 mg PO 0900,1500 [facility] Last Admin: 08/18/17 08:38 Dose: 50 mg Sodium Chloride (Flush - Normal Saline) 10 ml IVF Q12HR [facility] Last Admin: 08/18/17 08:48 Dose: Not Given Sodium Chloride (Flush - Normal Saline) 10 ml IVF PRN PRN PRN Reason: Saline Flush Tramadol HCl (Ultram) 50 mg PO Q4H PRN PRN Reason: Pain
[2017-08-18] MEDS: cefTRIAXone\\ROCEPHIN 1 GM, Syringe 0.4 ML in Sterile Water 9.6 ML SLOW IVP SCH (13:01)
--- NOTE | 2017-08-18 13:58 | DIS ---
DATE OF ADMISSION: 08/14/2017 DATE OF DISCHARGE: 08/18/2017 DISCHARGE DISPOSITION: To home. PRIMARY DISCHARGE DIAGNOSES: 1. Multiple skin abscesses status post incision and drainage on 08/16/2017. 2. Morbid obesity. 3. Diabetes mellitus type 2. 4. Schizoaffective disorder. 5. Hypertension. PROCEDURES DURING HOSPITALIZATION: Left hand x-ray 3 views done showed no major osseous abnormality. There is diffuse soft tissue swelling. Incision and drainage done of right distal fischer abscess x2, left dorsal hand abscess x2 by Dr. Chaparro. Blood cultures x2 no growth. Wound cultures have not grown any organism at 48 hours. White count of 6, H&H 12 and 38, platelet count is 169, with 64% neutrophils. BUN and creatinine is 6 and 0.6, CRP was 1.95. DISCHARGE MEDICATIONS: Bactrim double strength 1 tab twice daily for 10 days, Seroquel 50 mg p.o. twice daily, Zyprexa 10 mg p.o. at bedtime, fluoxetine 100 mg p.o. twice daily, hydrochlorothiazide 25 mg twice daily, Motrin p.r.n. for pain, Lantus 20 units subcutaneously at bedtime, Remeron 30 mg p.o. at bedtime. ALLERGIES: PENICILLIN. INPATIENT CONSULTS: Dr. Chaparro for Orthopedic Surgery. BRIEF COURSE DURING HOSPITALIZATION: The patient initially came to ER with complaints of multiple abscesses. She has had an abscess on her left hand, right ankle and left leg. She was evaluated by Dr. Chaparro. She has had incision and drainage done of the same. The patient was placed on IV antibiotics with vancomycin and ceftriaxone all through her stay. She has been transitioned to Bactrim this morning. The patient has been taught wound care dressings. She has been cleared for discharge by Dr. Chaparro. The patient is hemodynamically stable and needs to continue antibiotics for 10 days along with wound care. She is also advised to check fingerstick glucose daily for a period of 10 days and follow up with her primary care physician. Please see a face to face documentation for the day of discharge on [place]. Please note patient stayed overnight as home health with wound care wanted to meet her in hospital prior to discharge. KESHIA
[2017-08-18] MEDS: OLANZapine 5 MG TAB PO SCH (20:32)
[2017-08-18] MEDS: Insulin Detemir 100 UNITS/ML 20 UNITS in Pre-Filled Syringe 1 EACH SC SCH (21:00)
[2017-08-18] MEDS: Mirtazapine 30 MG TAB PO SCH (21:47)
[2017-08-19] MEDS: Fentanyl 100 MCG/2 ML VIAL SLOW IVP PRN ×2 (03:04→06:48)
[2017-08-19] MEDS: HumaLOG 300 UNITS/3 ML VIAL SC PRN (06:11)
[2017-08-19] MEDS: clonazePAM 1 MG TAB PO SCH (09:28)
[2017-08-19] MEDS: Hydrochlorothiazide 25 MG TAB PO SCH (09:28)
[2017-08-19] MEDS: Enoxaparin Sodium 40 MG/0.4 ML SYRINGE SC SCH (09:28)
[2017-08-19] MEDS: Famotidine 20 MG TAB PO SCH (09:29)
[2017-08-19] MEDS: Docusate 100 MG CAP PO SCH (09:29)
[2017-08-19] MEDS: Nicotine 21 MG PATCH TOP SCH (09:30)
--- NOTE | 2017-08-19 11:14 | PDOC.PN ---
- Subjective Encounter Start Date: 08/19/17 Encounter Start Time: 10:15 Subjective: is on oxygen from am due to low spo2 -: currently 93% on 2 liters nc - Objective Resuscitation Status: Resuscitation Status FULL:Full Resuscitation MAR Reviewed: Yes Vital Signs & Weight: Vital Signs (12 hours) Temp Pulse Resp BP Pulse Ox 08/19/17 07:14 98.4 F 78 16 162/90 H 94 L 08/19/17 06:26 16 92 L 08/19/17 06:00 98.3 F 81 17 151/91 H 89 L 08/19/17 00:11 18 92 L 08/18/17 23:38 98.6 F 77 16 165/89 H 88 L Weight Admit Weight 318 lb Weight 318 lb I&O: 08/18/17 08/19/17 08/20/17 06:59 06:59 06:59 Intake Total 3971 1360 Balance 3971 1360 Result Diagrams: 08/18/17 08:02 08/18/17 08:02 Additional Labs: Accuchecks 08/19/17 08/19/17 08/18/17 10:42 06:03 20:28 POC Glucose 209 H 203 H 210 H 08/18/17 08/18/17 15:53 11:31 POC Glucose 247 H 199 H Phys Exam - Physical Examination HEENT: PERRLA, moist MMs Neck: no JVD, supple Respiratory: no wheezing, no rales Cardiovascular: RRR, no significant murmur Gastrointestinal: soft, non-tender, positive bowel sounds Musculoskeletal: no edema, pulses present Neurological: non-focal, moves all 4 limbs Psychiatric: A&O x 3 Dx/Plan (1) Abscess of multiple sites Code(s): L02.91 - CUTANEOUS ABSCESS, UNSPECIFIED Status: Acute Comment: s/p I&D 08/16/17 (2) Morbid obesity Code(s): E66.01 - MORBID (SEVERE) OBESITY DUE TO EXCESS CALORIES Status: Chronic (3) Diabetes mellitus Code(s): E11.9 - TYPE 2 DIABETES MELLITUS WITHOUT COMPLICATIONS Status: Chronic Qualifiers: Diabetes mellitus type: type 2 Diabetes mellitus watermelon inspector insulin use: with usp use Diabetes mellitus complication status: with unspecified complications Qualified Code(s): E11.8 - Type 2 diabetes mellitus with unspecified complications; Z79.4 - termite treater helper (current) use of insulin; Z79.4 - [facility] (current) use of insulin; Z79.4 - [facility] (current) use of insulin; Z79.4 - termite treater helper (current) use of insulin (4) Schizoaffective disorder Code(s): F25.9 - SCHIZOAFFECTIVE DISORDER, UNSPECIFIED Status: Chronic Qualifiers: Schizoaffective disorder type: unspecified Qualified Code(s): F25.9 - Schizoaffective disorder, unspecified (5) HTN (hypertension) Code(s): I10 - ESSENTIAL (PRIMARY) HYPERTENSION Status: Chronic Qualifiers: Hypertension type: essential hypertension Qualified Code(s): I10 - Essential (primary) hypertension - Plan dc iv antibiotics, oral bactrim -: motrin tid prn -: hold all norcotic meds -: may dc anytime if outpt wound care and HH are arranged -: pt is on nicotine patch. She is ambulating in room per patient * . Review of Systems - Medications/Allergies Allergies/Adverse Reactions: Allergies Allergy/AdvReac Type Severity Reaction Status Date / Time Penicillins Allergy Verified 04/12/17 04:25 Medications: Current Medications Acetaminophen (Tylenol) 650 mg PO Q4H PRN PRN Reason: Headache/Fever or Pain Last Admin: 08/19/17 11:09 Dose: 650 mg Al Hydroxide/Mg Hydroxide (Maalox) 30 ml PO Q6H PRN PRN Reason: Heartburn or Indigestion Dextrose/Water (Dextrose 50%) 25 gm SLOW IVP PRN PRN PRN Reason: Hypoglycemia Docusate Sodium (Colace) 100 mg PO BID [facility] Last Admin: 08/19/17 09:29 Dose: 100 mg Enoxaparin Sodium (Lovenox) 40 mg SC 0900 [facility] Last Admin: 08/19/17 09:28 Dose: 40 mg Famotidine (Pepcid) 20 mg PO BID [facility] Last Admin: 08/19/17 09:29 Dose: 20 mg Fluvoxamine Maleate (Luvox) 100 mg PO BID [facility] Last Admin: 08/19/17 09:30 Dose: 100 mg Glucagon (Glucagon) 1 mg IM PRN PRN PRN Reason: Hypoglycemia Guaifenesin/Dextromethorphan (Robitussin Dm) 15 ml PO Q4H PRN PRN Reason: Cough Hydrochlorothiazide (Hydrochlorothiazide) 25 mg PO DAILY [facility] Last Admin: 08/19/17 09:28 Dose: 25 mg Dextrose/Water (D5w) 1,000 mls @ 0 mls/hr IV .Q0M PRN; As Directed PRN Reason: Hypoglycemia Insulin Detemir 20 units/ (Miscellaneous Medication) 0.2 mls @ 0 mls/hr SC [facility] Last Admin: 08/18/17 21:00 Dose: 0.2 mls Ibuprofen (Motrin) 400 mg PO TID [facility] Insulin Human Lispro (Humalog) 0 units SC .MODERATE SLIDING SC PRN PRN Reason: Moderate Correctional Scale Last Admin: 08/19/17 06:11 Dose: 4 unit Insulin Human Lispro (Humalog) 0 units SC .BEDTIME SLIDING SC PRN PRN Reason: Bedtime Correctional Scale Last Admin: 08/18/17 21:02 Dose: 2 unit Miscellaneous Medication (Pharmacy To Dose) 1 each IVPB ONE PRN PRN Reason: DOSING Stop: 09/14/17 12:21 Nicotine (Nicoderm Patch) 21 mg TOP Q24HR [facility] Last Admin: 08/19/17 09:30 Dose: 21 mg Olanzapine (Zyprexa) 10 mg PO [facility] Last Admin: 08/18/17 20:32 Dose: 10 mg Quetiapine Fumarate (Seroquel) 50 mg PO 0900,1500 [facility] Last Admin: 08/19/17 09:28 Dose: 50 mg Sodium Chloride (Flush - Normal Saline) 10 ml IVF Q12HR [facility] Last Admin: 08/19/17 09:29 Dose: 10 ml Sodium Chloride (Flush - Normal Saline) 10 ml IVF PRN PRN PRN Reason: Saline Flush Tramadol HCl (Ultram) 50 mg PO Q4H PRN PRN Reason: Pain Last Admin: 08/19/17 11:10 Dose: 50 mg Trimethoprim/Sulfamethoxazole (Bactrim Ds) 1 tab PO BID [facility]
[2017-08-19] MEDS ORDERED: HYDROcodone/Acetaminophen 5/325 mg Tablet PO PRN ×2 (11:36)
[2017-08-19 12:53] VITALS: BP 145/84; TEMP 98
[2017-08-19] MEDS ORDERED: Ibuprofen 200 MG TAB PO SCH (15:00)
[2017-08-19] MEDS ORDERED: Sulfameth/Trimethoprim DS 800-160mg TAB PO SCH (21:00)
--- NOTE | 2017-08-22 12:40 | PQF ---
ALTA CLEMENTE ANTHONY, MD [id number] [facility] [id number] CLINICAL DOCUMENTATION CLARIFICATION FORM: POST DISCHARGE Addendum to original discharge summary date: ____ Late entry note date: __ DATE: 08/16/17 ATTN: Dr. Chaparro Please exercise your independent, professional judgment in responding to the clarification form. Clinical indicators are provided on the bottom of this form for your review Please check appropriate box(s): [ ] Excisional Debridement: [ ] Excised [ ] Cut away [ ] Other: Depth / layer: (deepest layer of debridement): [ ] Skin[ ] SubQ Tissue [ ] Fascia [ ] Muscle [ ] Tendon [ ] Bone Appearance of wound: (e.g., down to fresh bleeding tissue, etc.)___ Margins: (please specify): / x x Instruments used: [ ] Scissors [ ] Scalpel [ ] Curette [ ] Soft tissue clipper [ ] Other: [ ] Non-excisional Debridement: (Removal by flushing, brushing, chemical, or washing) Depth / layer: (deepest layer of debridement): [ ] Skin[ ] Subcutaneous [ ] Fascia [ ] Muscle [ ] Tendon [ ] Bone [ ] Incision and Drainage only (No Debridement): Depth:[ ] Skin [ ] Subcutaneous [ ] Fascia [ ] Muscle [ ] Tendon [ ] Bone [ ] Escharectomy [ ] Other procedure diagnosis [ ] Unable to determine For continuity of documentation, please document condition throughout progress notes and discharge summary. Thank You. CLINICAL INDICATORS - SIGNS / SYMPTOMS / LABS: The 08/16/17 procedure note says "she had a medial skin abscess that had been previously drained and was draining some serous fluid. This was curreted to remove fibrinous exudate including skin and subcutenous tissue." RISK FACTORS Abscess TREATMENTS: Surgical intervention MTDD
== END 2017-08-19 15:54 | disposition home health service (06) | DRG 580 ==
LOC: ERS 16:39 → ERHOLD 23:53 → SJJU 08-15 07:13
PROVIDERS: ADMIT Internal Medicine; ATTEND Internal Medicine
PROC: 0J9N0ZZ Drainage of Right Lower Leg Subcutaneous Tissue and Fascia, Open Approach (ICD-10-PCS; principal; 2017-08-16)
PROC: 0J9K0ZZ Drainage of Left Hand Subcutaneous Tissue and Fascia, Open Approach (ICD-10-PCS; 2017-08-16)
PROC: 0J9N0ZZ Drainage of Right Lower Leg Subcutaneous Tissue and Fascia, Open Approach (ICD-10-PCS; 2017-08-16)
DX: L02.512 Cutaneous abscess of left hand (principal); L02.415 Cutaneous abscess of right lower limb; E66.01 Morbid (severe) obesity due to excess calories; L02.416 Cutaneous abscess of left lower limb; Z68.41 Body mass index [BMI] 40.0-44.9, adult; E11.9 Type 2 diabetes mellitus without complications; E66.9 Obesity, unspecified; F17.210 Nicotine dependence, cigarettes, uncomplicated; I10 Essential (primary) hypertension; F41.9 Anxiety disorder, unspecified; F32.9 Major depressive disorder, single episode, unspecified; F25.9 Schizoaffective disorder, unspecified
CPT/HCPCS: 36415; 36416; 80048; 80053; 80202; 85025; 85610; 85652; 86140; 87040; 87070; 87076; 87205; 96365; 96366; 96368; 96375; 96376; A4216; J0692; J0696; J1650; J1815; J2001; J2250; J2270; J2405; J2704; J3010; J3370; J3490; J7050

== ENCOUNTER 2017-09-15 10:30 | Emergency (ER) | payer MEDICARE, OTHER ==
[2017-09-15 12:15] LABS: #Eosinphils 0.2 thou/uL (0.0-0.7); #Lymphocytes 1.7 thou/uL (1.20-3.40); #Monocytes 0.4 thou/uL (0.11-0.59); #Neutrophils 5.4 thou/uL (1.40-6.50); %Basophils 0.3 % (0.0-1.0); %Eosinophils 2.4 % (0.0-10.0); %Lymphocytes 21.8 % (21.0-51.0); %Monocytes 4.8 % (0.0-10.0); %Neutrophils 70.8 % (42.0-75.0); Mean Corpuscular HGB CONC 34.7 g/dL (32.0-36.0); Mean Corpuscular Hemoglobin 28.7 pg (27.0-31.0); Mean Corpuscular Volume 82.9 fl (81.0-99.0); Mean Platelet Volume 8.2 fL (7.4-10.4); Platelet Count 157 thou/uL (130-400); RBC Distribution Width 13.6 % (11.5-14.5); Red Blood Cell (RBC) Count 4.88 mill/uL (4.20-5.40); White Blood Cell (WBC) Count 7.6 thou/uL (4.8-10.8)
[2017-09-15 12:37] LABS: ALT (SGPT) 18 U/L (8-55); AST (SGOT) 15 U/L (5-34); Alkaline Phosphatase 72 U/L (40-150); Anion Gap 15 mmol/L (10-20); BUN (Urea Nitrogen) 5 mg/dL (7.0-18.7); Bilirubin, Total 0.2 mg/dL (0.2-1.2); Calc. Creatinine Clearance 0 mL/min (70-130); Carbon Dioxide 20 mmol/L (22-29); Chloride 104 mmol/L (98-107); Estimated GFR-MDRD Greater than 90; Globulin 3.2 g/dL (2.4-3.5); Glucose 225 mg/dL (70-105); Potassium 3.8 mmol/L (3.5-5.1); Protein, Total 7.2 g/dL (6.0-8.3); Sodium 135 mmol/L (136-145)
[2017-09-15] MEDS ORDERED: Morphine 4 MG/ML VIAL ONE ×2 (13:22→15:24)
[2017-09-15] MEDS ORDERED: Clindamycin/D5W 600 mg/50 ml Premix Bag ONE (14:10)
[2017-09-15 14:51] LABS: Lactic Acid 2.3 mmol/L (0.5-2.2)
[2017-09-15] MEDS ORDERED: cloNIDine 0.1 MG TAB ONE (18:11)
== END 2017-09-15 18:14 | disposition home or self-care (01) ==
LOC: ERS 10:30
DX: L03.115 Cellulitis of right lower limb (principal); E11.9 Type 2 diabetes mellitus without complications; I10 Essential (primary) hypertension; F17.210 Nicotine dependence, cigarettes, uncomplicated; Z79.4 Long term (current) use of insulin; Z79.899 Other long term (current) drug therapy; Z79.891 Long term (current) use of opiate analgesic
CPT/HCPCS: 36415; 80053; 83605; 85025; 87040; 94760; 96365; 96375; 96376; 99406; J2270; J3490

== ENCOUNTER 2018-04-09 17:47 | Inpatient (IN) | payer MEDICARE, MEDICAID ==
[~2018-04-09 17:47] MED LIST: ISOVUE-370 76%-LOCM 1 ML ONE
[2018-04-09 18:48] LABS: #Lymphocytes 1.2 thou/uL (1.20-3.40); #Monocytes 0.6 thou/uL (0.11-0.59); #Neutrophils 4.9 thou/uL (1.40-6.50); %Basophils 0.1 % (0.0-1.0); %Eosinophils 0.7 % (0.0-10.0); %Lymphocytes 17.3 % (21.0-51.0); %Monocytes 9.3 % (0.0-10.0); %Neutrophils 72.6 % (42.0-75.0); Hemoglobin 16.1 g/dL (12.0-16.0); Mean Corpuscular HGB CONC 34.4 g/dL (32.0-36.0); Mean Corpuscular Hemoglobin 29.1 pg (27.0-31.0); Mean Corpuscular Volume 84.7 fL (78.0-98.0); Platelet Count 185 thou/uL (130-400); Red Blood Cell (RBC) Count 5.53 mill/uL (4.20-5.40); White Blood Cell (WBC) Count 6.8 thou/uL (4.8-10.8)
[2018-04-09] MEDS ORDERED: Ondansetron PF 4 MG/2 ML Vial ONE (18:58)
[2018-04-09] MEDS ORDERED: Morphine 4 MG/ML VIAL ONE ×2 (18:58→21:07)
[2018-04-09 19:08] LABS: Lactic Acid 2.4 mmol/L (0.5-2.2)
[2018-04-09 19:12] LABS: ALT (SGPT) 15 U/L (8-55); AST (SGOT) 13 U/L (5-34); Albumin 4.2 g/dL (3.5-5.0); Alkaline Phosphatase 71 U/L (40-150); Anion Gap 16 mmol/L (10-20); BUN (Urea Nitrogen) 9 mg/dL (7.0-18.7); Bilirubin, Total 0.6 mg/dL (0.2-1.2); Calc. Creatinine Clearance 0 mL/min (70-130); Calcium 10.2 mg/dL (7.8-10.44); Carbon Dioxide 25 mmol/L (22-29); Chloride 97 mmol/L (98-107); Estimated GFR-MDRD 86; Globulin 3.3 g/dL (2.4-3.5); Glucose 217 mg/dL (70-105); Lipase 10 U/L (8-78); Protein, Total 7.5 g/dL (6.0-8.3); Sodium 134 mmol/L (136-145)
[2018-04-09 19:14] LABS: Troponin I Less than 0.010 ng/mL (< 0.028)
--- NOTE | 2018-04-09 19:30 | RAD ---
AP VIEW CHEST: 04/09/18 HISTORY: Vomiting. Chest pain. AP view chest is obtained on 04/09/18. Comparison made to a previous exam from 04/08/17. AP view chest demonstrates the lungs to be well aerated. No evidence of active intrathoracic disease seen. No evidence of effusions, pneumonia or pneumothorax seen. IMPRESSION: Unremarkable AP view chest. POS: [facility]
[2018-04-09] MEDS ORDERED: diphenhydrAMINE 50 MG/ML VIAL ONE (19:51)
[2018-04-09] MEDS ORDERED: Dicyclomine 20 MG TAB ONE (19:51)
[2018-04-09] MEDS ORDERED: Metoclopramide HCl 10 MG/2 ML VIAL ONE (19:51)
[2018-04-09 19:52] LABS: BHCG - Serum Negative (NEGATIVE); Pregs Control Background? CLEAR/WHITE (CLR/WHITE); Pregs Control Bar Appear? YES (CONTROL BAR)
[2018-04-09] MEDS ORDERED: Benzocaine 20% Spray 60 ML CAN ONE ×2 (21:35→21:36)
--- NOTE | 2018-04-09 21:42 | CT ---
CONTRAST ENHANCED CT IMAGES OF THE ABDOMEN AND PELVIS: 04/09/18 HISTORY: Upper abdominal pain, emesis. Contrast enhanced CT images of the abdomen and pelvis is obtained after administration of IV contrast . Oral contrast was not given. The lung bases are unremarkable. No evidence of free intraperitoneal air seen. There is extensive hepatic steatosis seen. The gallbladder has been surgically removed. The spleen is moderately enlarged having three dimensional measurements of 14.5 x 6.6 x 17.5 cm. No definite evide nce of splenic mass is seen. The stomach is unremarkable. The pancreas is unremarkable. There is extensive proximal small bowel dilatation with portions of small bowel measuring up to 5.2 c m. The small bowel has normal distal caliber. There is an area of abrupt caliber change in the mid to distal small bowel. More distally, the small bowel is unremarkable. A normal appendix is seen. The colon contains a moderate amount of stool. IMPRESSION: Focal area of small bowel caliber reduction with significant proximal small bowel dilatation concerni ng for bowel obstruction. POS: [facility]
[2018-04-09] MEDS ORDERED: Nicotine 14 MG PATCH TOP SCH (21:45)
[2018-04-09] MEDS ORDERED: Ondansetron PF 4 MG/2 ML Vial IVP PRN (23:04)
[2018-04-09] MEDS ORDERED: Acetaminophen 325 MG TAB PO PRN (23:04)
[2018-04-09] MEDS ORDERED: Ondansetron ODT 4 MG TAB SL PRN (23:04)
[2018-04-09 23:05] VITALS: BMI 43.6
[2018-04-09] MEDS: Lactated Ringer's 1,000 ML IV SCH (23:50)
[2018-04-10] MEDS ORDERED: Morphine 2 MG/ML SYRINGE SLOW IVP SCH (00:15)
[2018-04-10] MEDS ORDERED: diphenhydrAMINE 50 MG/ML VIAL IVP SCH (00:15)
[2018-04-10] MEDS ORDERED: Morphine 2 MG/ML SYRINGE SLOW IVP PRN ×2 (06:45→08:59)
[2018-04-10] MEDS: Lactated Ringer's 1,000 ML IV SCH (06:51)
--- NOTE | 2018-04-10 07:49 | RAD ---
AP VIEW CHEST: 04/09/18 HISTORY: Small bowel obstruction. AP view chest is obtained. The lungs are well aerated. No evidence of active intrathoracic disease se en. No evidence of effusions, pneumonia or pneumothorax seen. IMPRESSION: Unremarkable AP view chest. POS: [facility]
[2018-04-10] MEDS ORDERED: Acetaminophen 1,000 MG in Premix Bag 1 BAG IVPB PRN (08:57)
[2018-04-10] MEDS ORDERED: Bisacodyl 10 MG SUPP PR PRN (09:00)
[2018-04-10] MEDS ORDERED: Acetaminophen 500 MG TAB PO PRN (09:00)
[2018-04-10] MEDS ORDERED: Dextrose 5% in Water 1,000 ML IV PRN (09:00)
[2018-04-10] MEDS ORDERED: hydrALAZINE 20 MG/ML VIAL SLOW IVP PRN (09:00)
[2018-04-10] MEDS ORDERED: HumaLOG 300 UNITS/3 ML VIAL SC PRN ×2 (09:00)
[2018-04-10] MEDS ORDERED: Ondansetron ODT 4 MG TAB SL PRN (09:00)
[2018-04-10] MEDS ORDERED: Ondansetron PF 4 MG/2 ML Vial IVP PRN (09:00)
[2018-04-10] MEDS ORDERED: Dextrose 50% Abboject 50 ML SYRINGE SLOW IVP PRN (09:00)
[2018-04-10 09:44] LABS: #Lymphocytes 1.7 thou/uL (1.20-3.40); #Monocytes 0.3 thou/uL (0.11-0.59); #Neutrophils 1.9 thou/uL (1.40-6.50); %Basophils 0.5 % (0.0-1.0); %Eosinophils 1.1 % (0.0-10.0); %Lymphocytes 43.1 % (21.0-51.0); %Monocytes 8.1 % (0.0-10.0); %Neutrophils 47.2 % (42.0-75.0); Hemoglobin 13.3 g/dL (12.0-16.0); Mean Corpuscular HGB CONC 33.9 g/dL (32.0-36.0); Mean Corpuscular Hemoglobin 28.8 pg (27.0-31.0); Mean Platelet Volume 9.3 fL (7.4-10.4); Platelet Count 135 thou/uL (130-400); RBC Distribution Width 13.8 % (11.5-14.5)
[2018-04-10 10:09] LABS: ALT (SGPT) 12 U/L (8-55); AST (SGOT) 16 U/L (5-34); Albumin 3.4 g/dL (3.5-5.0); Alkaline Phosphatase 51 U/L (40-150); Anion Gap 11 mmol/L (10-20); BUN (Urea Nitrogen) 9 mg/dL (7.0-18.7); Bilirubin, Total 0.4 mg/dL (0.2-1.2); Calc. Creatinine Clearance 248 mL/min (70-130); Calcium 8.6 mg/dL (7.8-10.44); Carbon Dioxide 29 mmol/L (22-29); Chloride 101 mmol/L (98-107); Estimated GFR-MDRD Greater than 90; Globulin 2.5 g/dL (2.4-3.5); Glucose 145 mg/dL (70-105); Potassium 3.3 mmol/L (3.5-5.1); Protein, Total 5.9 g/dL (6.0-8.3); Sodium 138 mmol/L (136-145)
--- NOTE | 2018-04-10 11:04 | CON ---
DATE OF CONSULTATION: 04/10/2018 CONSULTING PHYSICIAN: Dr. Lei REASON FOR CONSULTATION: Small-bowel obstruction. HISTORY OF PRESENT ILLNESS: The patient is a 43-year-old obese smoking white female. She presented to the emergency room yesterday evening with a complaint of abdominal pain for a couple of days. She had a few episodes of self-induced vomiting, but no spontaneous vomiting. She believes her last bow el movement was 2-3 days ago. She states she has had minimal oral intake for the past couple of days . She denies prior symptoms similar to this. In the emergency room, she was evaluated with laborato ry studies and radiologic studies. Her CBC was entirely normal with a white blood cell count of 6.8, hemoglobin of 16, and a normal differential. Chemistry profile revealed minor electrolyte abnormali ties. Glucose slightly elevated to 17. Liver function tests entirely normal. Protein level entire ly normal. Renal function normal. CT scan was obtained and felt to potentially be consistent with a small-bowel obstruction. Her surgical history that was relayed to me was that she had only had a laparoscopic cholecystectomy and I felt this was unlikely to cause a significant small-bowel obstruction. She also had a history of narcotic use with Tylenol 4s, that she takes approximately 6-8 of these per day for back pain. It was felt she was unlikely to have a surgical problem and recommended admission to the Medical Serv[facility] e. Nasogastric tube was placed in the emergency room. Apparently about a liter came out on the floor af ter she was admitted. She tells me that in spite of this decompression that her abdomen does not wilber lly feel much better. PAST MEDICAL HISTORY: 1. Diabetes. 2. Bipolar disorder with depressive association. 3. Hypertension. 4. Obesity. 5. Anxiety. PAST SURGICAL HISTORY: 1. Laparoscopic converted to an open cholecystectomy about 10 years ago. 2. Back surgery. CURRENT MEDICATIONS: Januvia, metformin, Lantus insulin, hydrochlorothiazide, Seroquel, clonazepam, Tylenol 4, she tells me she takes 2 of these 3-4 times per day. ALLERGIES: PENICILLIN. PRIMARY CARE PHYSICIAN: Dr. Jonah Griggs PERSONAL/SOCIAL HISTORY: She is single with no children and lives by herself. She is disabled secon luzmaria to [employer]. She smokes about a pack and a half of cigarettes per day. She denies any sig nificant recent illegal drug use other than some mild occasional marijuana. She does have a history of cocaine, however. REVIEW OF SYSTEMS: Otherwise, unremarkable. FAMILY HISTORY: Noncontributory. PHYSICAL EXAMINATION: VITAL SIGNS: Her temperature is 98.5, pulse 78, blood pressure 123/85. She is about 6 feet tall and weighs 320 pounds. Her BMI is 43.4. GENERAL: She is a well-developed, well-nourished, obese, pleasant white female resting in bed. She was asleep when I arrived this morning. She is pleasant and cooperative. She is alert and oriented x3. HEENT: Unremarkable. NECK: Supple, without mass or tenderness. LUNGS: Clear to auscultation anteriorly. CARDIAC: Regular rate and rhythm without murmur. ABDOMEN: Obese. She appears to have some mild to moderate diffuse discomfort with palpation. Bowel sounds are present and appear to be normoactive. EXTREMITIES: Unremarkable. A nasogastric tube is in place and functioning appropriately. LABORATORY: Labs as mentioned above were obtained yesterday. Repeat labs for today are pending. ASSESSMENT: Patient with possible small-bowel obstruction. The most common etiology being the adhes ions from prior surgery. She has benign findings in regards to her laboratory studies, vital signs a nd her CT scan is not particularly impressive for an obstructive finding. For now, I would recommend a trial of conservative management. I recommend nasogastric suction for at least 24 hours followed by small bowel follow through with Gastrografin. This has been ordered for tomorrow morning. I have encouraged her to ambulate and she can certainly take ice chips to keep her mouth moist. She is req uesting pain medicine. I suspect this is because of her narcotic habituation. I will order some low dose morphine and encourage her to use intravenous Tylenol to help take the edge off of her perceive d discomfort.
[2018-04-10] MEDS: Famotidine/PF 20 mg/2ml Vial SLOW IVP SCH ×2 (11:09→20:22)
[2018-04-10] MEDS: Nicotine 14 MG PATCH TD SCH (11:10)
[2018-04-10] MEDS: Morphine 2 MG/ML SYRINGE SLOW IVP PRN ×5 (11:10→22:45)
[2018-04-10] MEDS: Sodium Chloride 0.9% 1,000 ML IV SCH ×2 (11:11→16:26)
--- NOTE | 2018-04-10 11:29 | HP ---
DATE OF ADMISSION: 04/10/2018 PRIMARY CARE PHYSICIAN: Jonah Griggs M.D. CHIEF COMPLAINT: Abdominal pain with nausea and vomiting. HISTORY OF PRESENT ILLNESS: This is a 43-year-old female who presented to [facility] Emergency Department complaining of approximately 1-day history of severe mid epigastric abdomina l pain with associated nausea and vomiting. The patient apparently had multiple episodes of emesis a ssociated with the pain, which was described as sharp, cramping and squeezing. The patient states he r last bowel movement was approximately 2-3 days prior to this evaluation and last oral intake was ap proximately 48 hours prior to this evaluation. The patient denies any prior similar symptoms in the past, recent trauma, injury, travel history or family members with similar symptoms. The patient den ied any change to her chronic medication regimen, recent procedures or surgical intervention. The pa tient states lying still seem to improve her symptoms; however, the nausea has persisted. In the [facility]ек[facility] rgency room, the patient underwent general evaluation including CT of the abdomen and pelvis showing evidence of a small-bowel obstruction. The patient underwent placement of NG tube with bilious drain age noted. The patient was also given multiple antiemetics, IV fluids, morphine sulfate, Reglan and Benadryl with improvement in overall symptoms. The patient was transferred to the medical floor for further evaluation. PAST MEDICAL HISTORY: 1. Hypertension. 2. Diabetes mellitus type 2, insulin requiring. 3. Chronic narcotic use. 4. Obesity. 5. Degenerative joint disease. 6. Anxiety/depression. PAST SURGICAL HISTORY: 1. Status post back surgery x2. 2. Status post laparoscopic cholecystectomy with conversion to open cholecystectomy. CURRENT MEDICATIONS: 1. Fluvoxamine maleate 100 mg p.o. b.i.d. 2. Glargine insulin 20 units subcutaneously at bedtime. 3. Seroquel 200 mg p.o. b.i.d. 4. Januvia 100 mg p.o. daily. 5. Hydrochlorothiazide 25 mg p.o. b.i.d. ALLERGIES: PENICILLIN. FAMILY HISTORY: Mother at the age of 65 with a history of lymphoma. Father due to complications of a stroke at 67 years of age. SOCIAL HISTORY: The patient smokes up to one and a half pack of cigarettes daily. History of prior cocaine and marijuana use. Alcohol use weekly. Disabled due to mental health issues. Resides in [place], [place]. REVIEW OF SYSTEMS: The following complete review of systems was negative, unless otherwise mentioned in the HPI or below: Constitutional: Weight loss or gain, ability to conduct usual activities. Sk in: Rash, itching. Eyes: Double vision, pain. ENT/Mouth: Nose bleeding, neck stiffness, pain, te nderness. Cardiovascular: Palpitations, dyspnea on exertion, orthopnea. Respiratory: Shortness of breath, wheezing, cough, hemoptysis, fever or night sweats. Gastrointestinal: Poor appetite, abdom inal pain, heartburn, nausea, vomiting, constipation, or diarrhea. Genitourinary: Urgency, frequenc y, dysuria, nocturia. Musculoskeletal: Pain, swelling. Neurologic/Psychiatric: Anxiety, depressio n. Allergy/Immunologic: Skin rash, bleeding tendency. Otherwise negative except as stated per HPI. PHYSICAL EXAMINATION: VITAL SIGNS: Currently, blood pressure 150/85, pulse 87, respiratory rate 20, temperature 98.3 degre es Fahrenheit, O2 saturation 93% on room air. GENERAL APPEARANCE: This is a 43-year-old female, alert and oriented x3, pleasant, convers ant, in no acute distress. HEENT: Pupils are equal, round and reactive to light and accommodation. Extraocular muscles are int act. No scleral icterus. No conjunctival injection. Nares patent. NG tube in place with dark bili ous drainage in suction cannister. OP is clear. Teeth in fair repair. NECK: Supple. No cervical adenopathy, no thyromegaly, no carotid bruits, no JVD noted. Cervical sp ine with full active and passive range of motion. No meningeal signs appreciated. CHEST: Lungs are clear to auscultation bilaterally. CARDIOVASCULAR: S1, S2 without noted murmur, rub or gallop. ABDOMEN: Obese with mild tenderness to palpation in the midepigastric region. Bowel sounds are posi tive. No palpable mass; however, landmarks are difficult to palpate due to the patient's body habitu s. EXTREMITIES: Warm and dry with fair turgor. No clubbing, cyanosis or asymmetric edema appreciated. Pulses palpable distally at the dorsalis pedis, posterior tibial and popliteal arteries bilaterally. Capillary refill less than 2 seconds. NEUROLOGIC: Cranial nerves II-XII are grossly intact. No focal or lateralizing signs appreciated. PERTINENT LABORATORY AND X-RAY FINDINGS: Sodium 134, potassium is 4.0, chloride 97, CO2 of 25, BUN 9 , creatinine 0.73, glucose 217. Lactic acid level 2.4, calcium 10.2. LFTs within normal limits. Al bumin 4.2, serum beta hCG negative. Lipase 10. CBC showed a white blood cell count of 4.0, hemoglob in 13, hematocrit of 39, platelet count 135,000 with normal differential. Portable chest x-ray dated 04/09/2018 showed no acute cardiopulmonary process. CT of the abdomen and pelvis dated 04/09/2018 s howed small caliber reduction of the proximal small bowel with small bowel dilation proximally. EKG dated 04/09/2018 by my interpretation shows a sinus mechanism with heart rates in the 90s. Attenuate d R waves noted in the precordial leads. Normal axis. Baseline artifact noted. ASSESSMENT AND PLAN: 1. Small-bowel obstruction. The patient will be admitted to the medical floor. NG tube suction wit h low intermittent wall suctioning continued. General Surgery consult for any further recommendation s or potential surgical intervention. Currently, the patient will be managed conservatively and claudia tored for clinical response. Small-bowel follow through in the a.m. 2. Nausea and vomiting secondary to small-bowel obstruction. Continue Zofran 4 mg IV q.6 hours p.r. n. N.p.o. status. NG tube with low intermittent wall suction. 3. Diabetes mellitus type 2. Insulin sliding scale for reflexive coverage. Accu-Cheks q.6 hours. Resume ADA diet when tolerating p.o. intake. 4. Hypertension. Hydralazine p.r.n. until tolerating oral intake. Hold hydrochlorothiazide approxi mately 24 hours. 5. Prophylaxis. Sequential compression devices while in bed. Pepcid 20 mg IV b.i.d. 6. Code status is full. Surrogate medical decision maker is the patient's brother.
--- NOTE | 2018-04-10 17:05 | EKG ---
Test Reason : Blood Pressure : / mmHG Vent. Rate : 096 BPM Atrial Rate : 096 BPM P-R Int : 142 ms QRS Dur : 086 ms QT Int : 344 ms P-R-T Axes : 063 065 086 degrees QTc Int : 434 ms Normal sinus rhythm Possible Left atrial enlargement Borderline ECG Confirmed by OLIVER MORENO ([id number]), international editorial producer SYBIL CASTILLO ([id number]) on 04/10/2018 5:04:34 PM Referred By: Confirmed By:OLIVER MORENO
[2018-04-11] MEDS: Morphine 2 MG/ML SYRINGE SLOW IVP PRN ×4 (02:14→12:35)
[2018-04-11] MEDS: Sodium Chloride 0.9% 1,000 ML IV SCH ×2 (02:20→10:35)
[2018-04-11 07:31] VITALS: BP 143/83; TEMP 98.4
[2018-04-11] MEDS: Famotidine/PF 20 mg/2ml Vial SLOW IVP SCH (07:59)
[2018-04-11] MEDS: Nicotine 14 MG PATCH TD SCH (08:00)
[2018-04-11] MEDS ORDERED: MD-Gastroview 120 ML BOT ONE (12:48)
--- NOTE | 2018-04-11 13:18 | PDOC.PN ---
- Subjective Encounter Start Date: 04/11/18 Encounter Start Time: 09:20 Pt seen nicolasa followup re: bowel obstruction. Passing flatus. Denies chest pain. Nausea+, no vomiting. - Objective Resuscitation Status: Resuscitation Status FULL:Full Resuscitation Vital Signs & Weight: Vital Signs (12 hours) Temp Pulse Resp BP Pulse Ox 04/11/18 07:29 98.4 F 71 18 143/83 H 94 L Weight Admit Weight 322 lb 3.2 oz Weight 322 lb 3.2 oz I&O: 04/10/18 04/11/18 04/12/18 06:59 06:59 06:59 Intake Total 2310 Output Total 2450 Balance -140 Result Diagrams: 04/10/18 09:36 04/10/18 09:36 Additional Labs: Accuchecks 04/11/18 04/11/18 04/10/18 04:51 02:04 20:09 POC Glucose 111 H 109 121 H 04/10/18 15:41 POC Glucose 131 H Phys Exam - Physical Examination Constitutional: NAD HEENT: moist MMs, sclera anicteric, oral pharynx no lesions, 2+ tonsils Neck: no nodes, no JVD, supple, full ROM Respiratory: no wheezing, no rales, no rhonchi, clear to auscultation bilateral Cardiovascular: RRR, no rub S1, S2 Gastrointestinal: soft, non-tender, no distention sluggish bowel sounds Neurological: moves all 4 limbs Psychiatric: normal affect, A&O x 3 Dx/Plan (1) Bowel obstruction Code(s): K56.609 - UNSP INTESTNL OBST, UNSP TO PARTIAL VERSUS COMPLETE OBST Status: Acute Comment: passing flatus, improving (2) Diabetes mellitus Code(s): E11.9 - TYPE 2 DIABETES MELLITUS WITHOUT COMPLICATIONS Status: Chronic Qualifiers: Diabetes mellitus type: type 2 Diabetes mellitus longterm insulin use: with longterm use Diabetes mellitus complication status: with unspecified complications Qualified Code(s): E11.8 - Type 2 diabetes mellitus with unspecified complications; Z79.4 - nursing home (current) use of insulin; Z79.4 - termite technician (current) use of insulin; Z79.4 - termite technician (current) use of insulin; Z79.4 - termite technician (current) use of insulin Comment: continue accuchecks, insulin sliding scale (3) HTN (hypertension) Code(s): I10 - ESSENTIAL (PRIMARY) HYPERTENSION Status: Chronic Qualifiers: Hypertension type: essential hypertension Qualified Code(s): I10 - Essential (primary) hypertension Comment: monitor vital signs, titrate antihypertensives as needed - Plan * . Review of Systems - Review of Systems Constitutional: negative: fever, chills, sweats, weakness, malaise ENT: negative: Ear Pain, Ear Discharge, Nose Pain, Nose Discharge, Nose Congestion, Mouth Pain, Mouth Swelling, Throat Pain, Throat Swelling Respiratory: negative: Cough, Shortness of Breath, SOB with Excertion, Pleuritic Pain, Wheezing Cardiovascular: negative: chest pain, palpitations, orthopnea, paroxysmal nocturnal dyspnea, edema, light headedness Gastrointestinal: Nausea. negative: Vomiting, Abdominal Pain, Diarrhea, Constipation, Melena, Hematochezia Genitourinary: negative: Dysuria, Frequency, Incontinence, Hematuria, Retention - Medications/Allergies Allergies/Adverse Reactions: Allergies Allergy/AdvReac Type Severity Reaction Status Date / Time Penicillins Allergy Verified 04/12/17 04:25 Medications: Current Medications Acetaminophen (Tylenol) 1,000 mg PO Q6H PRN PRN Reason: Mild Pain (1-3) Bisacodyl (Dulcolax) 10 mg DE DAILYPRN PRN PRN Reason: Constipation Dextrose/Water (Dextrose 50%) 25 gm SLOW IVP PRN PRN PRN Reason: Hypoglycemia Famotidine (Pepcid) 20 mg SLOW IVP Q12HR [facility] Last Admin: 04/11/18 07:59 Dose: 20 mg Fluvoxamine Maleate (Luvox) 100 mg PO BID [facility] Last Admin: 04/11/18 08:00 Dose: Not Given Glucagon (Glucagon) 1 mg IM PRN PRN PRN Reason: Hypoglycemia Hydralazine HCl (Apresoline) 10 mg SLOW IVP Q4H PRN PRN Reason: SBP > 180 and HR < 70 Dextrose/Water (D5w) 1,000 mls @ 0 mls/hr IV .Q0M PRN PRN Reason: Hypoglycemia Sodium Chloride (Normal Saline 0.9%) 1,000 mls @ 125 mls/hr IV .Q8H [facility] Last Admin: 04/11/18 10:35 Dose: 1,000 mls Insulin Human Lispro (Humalog) 0 units SC .MILD SLIDING SCALE PRN PRN Reason: Mild Correctional Scale Insulin Human Lispro (Humalog) 0 units SC .BEDTIME SLIDING SC PRN PRN Reason: Bedtime Correctional Scale Morphine Sulfate (Morphine) 2 mg SLOW IVP Q2H PRN PRN Reason: Moderate to Severe Pain (6-10) Last Admin: 04/11/18 12:35 Dose: 2 mg Nicotine (Nicoderm Patch) 14 mg TD Q24HR [facility] Last Admin: 04/11/18 08:00 Dose: 14 mg Ondansetron HCl (Zofran Odt) 4 mg SL Q6H PRN PRN Reason: Nausea/Vomiting Ondansetron HCl (Zofran) 4 mg IVP Q6H PRN PRN Reason: Nausea/Vomiting Last Admin: 04/11/18 00:00 Dose: 4 mg Quetiapine Fumarate (Seroquel) 800 mg PO HS [facility] Last Admin: 04/10/18 20:20 Dose: Not Given
[2018-04-11] MEDS ORDERED: traMADol HCl 50 MG TAB PO PRN ×2 (14:05)
[2018-04-11] MEDS ORDERED: Acetaminophen 500 MG TAB PO SCH (14:15)
--- NOTE | 2018-04-11 14:26 | RAD ---
SMALL BOWEL SERIES: Date: 04/11/18 HISTORY: Small bowel obstruction. FINDINGS: A nasogastric tube is present. There are postop changes in the right upper quadrant. Serial imaging w as performed after the instillation of contrast into the stomach via NG tube. There is unobstructed flow of contrast through the loops of small bowel and into the colon. The cont rast reaches the colon by 2 hours. No bowel wall thickening or abnormal loop separation is seen. IMPRESSION: No evidence of high grade small bowel obstruction. POS: GABRIEL
--- NOTE | 2018-04-11 14:44 | PRG ---
DATE OF SERVICE: 04/11/2018 SUBJECTIVE: I am seeing Ms. Benoit on behalf of Dr. Mariano. The patient is a 43-year-old woman who was admitted with possible acute small-bowel obstruction. A nasogastric tube was placed and pallavi ent has been on bowel rest since yesterday with IV hydration. This morning she reports passing a sca nt amount of flatus, but no bowel movements. Her abdominal pain is improved. She has just completed acute small bowel follow through and 2 hours contrast is in colon. OBJECTIVE: VITAL SIGNS: This morning includes blood pressure 142/83, pulse is 71, respiratory rate is 18, tempe rature 98.4 degrees Fahrenheit, oxygen saturation 94% on room air. HEART: Reveals regular rate and rhythm, no murmurs or gallops auscultated. CHEST: Lungs clear to auscultation bilaterally. Breathing is regular and unlabored. ABDOMEN: Soft and obese, but mildly tender to palpation. She clearly has no gross rebound tendernes s present. A nasogastric tube returned over a 2400 mL of gastric effluent yesterday. Current output ; however, is nonbilious and scant over the last 6 hours. NEUROLOGIC: Reveals no focal deficits present. IMPRESSION: Resolved acute small-bowel obstruction. PLAN: We will discontinue nasogastric tube and initiate oral intake. Anticipate discharge tomorrow if the patient continues to tolerate a diet with poor return of bowel function. Above findings and p jack discussed with patient who indicates understanding of information given. I answered her question s.
--- NOTE | 2018-04-11 22:48 | DIS ---
DATE OF ADMISSION: 04/10/2018 DATE OF DISCHARGE: 04/11/2018 PRIMARY CARE PROVIDER: Jonah Griggs M.D. DISCHARGE DIAGNOSIS: Bowel obstruction. CONDITION OF PATIENT ON THE DAY OF DISCHARGE: Stable. I assessed Ms. Benoit on the day of discha rge. Please refer to my daily hospitalist progress note for further details regarding this face-to-f scott encounter. CONSULTATION DURING THIS HOSPITALIZATION: General surgery, Dr. Garrett Mariano. DISCHARGE MEDICATIONS: No change was made to patient's preadmission home medications as dictated on Dr. Suresh's history and physical note dated 04/10/2018. HOSPITAL COURSE: Ms. Benoit is a pleasant 43-year-old lady who was admitted to [facility] on 04/10/2018 for bowel obstruction. Please refer to Dr. Suresh's history and physical note dated 04/10/2018 for further details. She was seen by General Surgery Service. She was treate d conservatively. Small bowel series done on 04/11/2018 did not show any evidence of high grade smal l-bowel obstruction. She has been cleared for discharge by surgical service. Many thanks for allowing me to participate in your patient's care. Please feel free to contact me wi th any questions or concerns. DISCHARGE DESTINATION: Home. TOTAL AMOUNT OF TIME SPENT COORDINATING THIS DISCHARGE: 32 minutes.
--- NOTE | 2018-04-13 10:17 | ADD-PRG ---
DATE OF SERVICE: 04/11/2018 ADDENDUM I have seen Ms. Benoit approximately 3 hours since completion of small bowel follow through. Patient reports multiple bowel movements. She is tolerating general diet. She ambulates without any difficulty. She endorses minimal abdominal pain at this time. She has remained hemodynamically sta ble and afebrile. Abdominal examination reveals a soft, nondistended and nontender abdomen. I have given an option to be discharged home to stay on full liquid diet today and advance diet as to lerated tomorrow and to continue to ambulate to avoid complications of venous thromboembolism. Alternatively, she may wait until tomorrow and will be discharged should she continue with no return of abdominal pain. Patient has elected to go home. She will follow up with Dr. Mariano in the clini c as needed. Patient has expressed deep gratitude for the care and nurture during this hospitalization and surgery . I am recommending discharge home at the discretion of the primary service.
== END 2018-04-11 18:05 | disposition home or self-care (01) | DRG 389 ==
LOC: ERS 17:47 → T4-A 22:29
PROVIDERS: ADMIT Internal Medicine; ATTEND Internal Medicine
PROC: 0D9670Z Drainage of Stomach with Drainage Device, Via Natural or Artificial Opening (ICD-10-PCS; principal; 2018-04-09)
DX: K56.609 Unspecified intestinal obstruction, unspecified as to partial versus complete obstruction (principal); Z68.41 Body mass index [BMI] 40.0-44.9, adult; I10 Essential (primary) hypertension; E11.9 Type 2 diabetes mellitus without complications; Z79.4 Long term (current) use of insulin; F15.90 Other stimulant use, unspecified, uncomplicated; E66.9 Obesity, unspecified; M19.90 Unspecified osteoarthritis, unspecified site; F41.9 Anxiety disorder, unspecified; Z79.899 Other long term (current) drug therapy; F17.210 Nicotine dependence, cigarettes, uncomplicated; Z88.0 Allergy status to penicillin; Z79.84 Long term (current) use of oral hypoglycemic drugs; F31.9 Bipolar disorder, unspecified; F12.90 Cannabis use, unspecified, uncomplicated
CPT/HCPCS: 36415; 36416; 71045; 74177; 74250; 80053; 83605; 83690; 84484; 84703; 85025; 90471; 90732; 93005; 96361; 96365; 96375; 96376; G0009; J0131; J1200; J2270; J2405; J2765; S0028